=== PATIENT | female | born 1940 | race Two or more races ===

== ENCOUNTER 2018-05-01 15:11 | Emergency (ER) | payer OTHER ==
[2018-05-01 15:19] VITALS: BP 140/66; PULSE 83; TEMP 98.3; BMI 30.2
--- NOTE | 2018-05-01 15:23 | PDOC ---
Rapid Medical Evaluation Chief Complaint: Eye Problem Time Seen by Provider: 05/01/18 15:15 Medical Evaluation: Allergies Allergy/AdvReac Type Severity Reaction Status Date / Time Penicillins Allergy Verified 03/18/18 15:43 05/01/18 15:17 I have performed a brief in-person evaluation of this patient. The patient presents with a chief complaint of: b/l kaylynn-orbital swelling w/ itching and tearing x 2 weeks. 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 Discharge Disposition - Diagnosis Allergic conjunctivitis Qualifiers: Laterality: bilateral Qualified Code(s): H10.13 - Acute atopic conjunctivitis, bilateral - Referrals - Patient Instructions - Post Discharge Activity
--- NOTE | 2018-05-01 16:21 | PDOC ---
History of Present Illness - General Chief Complaint: Eye Problem Stated Complaint: ALLERGIC REACTION Time Seen by Provider: 05/01/18 15:15 - History of Present Illness Initial Comments: 05/01/18 16:18 78-year-old female with multiple comorbidities and glaucoma presents for evaluation of bilateral eye irritation 2 weeks no other associated symptoms Past History - Past Medical History Allergies/Adverse Reactions: Allergies Allergy/AdvReac Type Severity Reaction Status Date / Time Penicillins Allergy Verified 05/01/18 15:19 Home Medications: Ambulatory Orders Alendronate Sodium [Binosto] 70 mg PO HERRERA 03/18/18 Atorvastatin Ca [Lipitor] 20 mg PO DAILY 03/18/18 Clopidogrel Bisulfate [Plavix] 75 mg PO DAILY 03/18/18 Furosemide [Lasix] 20 mg PO DAILY 03/18/18 Levothyroxine Sodium [Synthroid] 0 mcg PO DAILY 03/18/18 Lisinopril 5 mg PO DAILY 03/18/18 COPD: No HTN: Yes Thyroid Disease: Yes Other medical history: legally blind - Suicide/Smoking/Psychosocial Hx Smoking History: Never smoked Review of Systems - Review of Systems HEENTM: Yes: See HPI, Tearing All Other Systems: Reviewed and Negative *Physical Exam - Vital Signs Last Vital Signs Temp Pulse Resp BP Pulse Ox 98.3 F 83 18 140/66 99 05/01/18 15:15 05/01/18 15:15 05/01/18 15:15 05/01/18 15:15 05/01/18 15:15 - Physical Exam Comments: HEAD: NC/AT EYES: Conjuntiva clear erythemic with clear tears MS: Full ROM in all joints without edema NEUROLOGIC: No gross sensory or motor deficits, NVID SKIN: Normal color and temperature no lesions or rashes 05/01/18 16:18 Medical Decision Making - Medical Decision Making 05/01/18 16:19 Patient is on an antibiotic eye ointment erythromycin, and antihistamine eyedrop , as well as drops for her glaucoma that is underlying and has not changed. Her vision has not changed she's 20/200 in both eyes. Legally blind in the left. I will have her follow-up with optomology tomorrow *DC/Admit/Observation/Transfer Diagnosis at time of Disposition: Allergic conjunctivitis Qualifiers: Laterality: bilateral Qualified Code(s): H10.13 - Acute atopic conjunctivitis, bilateral - Discharge Dispostion Disposition: HOME Condition at time of disposition: Stable Decision to Admit order: No - Referrals Referrals: ON STAFF,NOT [Primary Care Provider] - Denisha Orantes MD [Staff Physician] - - Patient Instructions Printed Discharge Instructions: Conjunctivitis, DI for Conjunctivitis Additional Instructions: Is follow-up with ophthalmology tomorrow for further evaluation and treatment options and continue to use the eyedrops that you've already been prescribed. Return to the emergency room should symptoms worsen. - Post Discharge Activity
== END 2018-05-01 16:26 | disposition home or self-care (01) ==
LOC: JERFT 15:11
DX: H10.13 Acute atopic conjunctivitis, bilateral (principal); H54.62 Unqualified visual loss, left eye, normal vision right eye; Z94.7 Corneal transplant status; I10 Essential (primary) hypertension; E03.9 Hypothyroidism, unspecified
CPT/HCPCS: 99281-25

== ENCOUNTER 2018-05-05 01:04 | Emergency (ER) | payer OTHER ==
[2018-05-05 01:51] VITALS: BP 134/71; PULSE 94; TEMP 98.9; BMI 30.7
[2018-05-05] MEDS ORDERED: methylPREDNISolone NA SUCC 125 MG/2 ML VIAL IVPUSH ONE (02:52)
[2018-05-05] MEDS ORDERED: RANITIDINE HCL 150 MG TABLET (FP) PO ONE (02:53)
[2018-05-05] MEDS ORDERED: CIPROFLOXACIN 0.3% EYE DROPS 5 ML BOTTLE OU ONE (02:55)
--- NOTE | 2018-05-05 02:59 | PDOC ---
History of Present Illness - General Chief Complaint: Eye Problem Stated Complaint: EYE SWELLING AND IRRITATION Time Seen by Provider: 05/05/18 02:16 History Source: Patient Exam Limitations: No Limitations - History of Present Illness Initial Comments: 05/05/18 02:56 This is a 78 year old female with a medical history of CAD, HTN, hypothyroid who presents with bilateral eye swelling, green discharge with surrounding face swelling and erythema for the past week. She was recently seen here at [facility] on 05/01 for the same symptoms. She was diagnosed with bilateral conjunctivitis, sent home with erythromycin and optho follow up. Patient with daughter in law today, stating that they were prescribed polymicxin/neomycin/dexamethazone ointment/drops. When patient applied the ointment, her symptoms quickly worsened with increased erythema, eyes swollen shit and itching. She does endorse unusual feeling in throat at that time, that has resolved. Patient denies fever, chills, n, v, chest pain, sob, lip swelling, trouble swallowing, GI or complaints. 05/05/18 03:04 Timing/Duration: 1 week, getting worse Severity: moderate Modifying Factors: improves with: medication (worse with new prescribed medication) Past History - Past Medical History Allergies/Adverse Reactions: Allergies Allergy/AdvReac Type Severity Reaction Status Date / Time Penicillins Allergy Verified 05/01/18 15:19 Home Medications: Ambulatory Orders Alendronate Sodium [Binosto] 70 mg PO HERRERA 03/18/18 Atorvastatin Ca [Lipitor] 20 mg PO DAILY 03/18/18 Clopidogrel Bisulfate [Plavix] 75 mg PO DAILY 03/18/18 Furosemide [Lasix] 20 mg PO DAILY 03/18/18 Levothyroxine Sodium [Synthroid] 0 mcg PO DAILY 03/18/18 Lisinopril 5 mg PO DAILY 03/18/18 Ciprofloxacin 0.3% Eye Drops [Ciloxan 0.3% Eye Drops --] 2 drop OU Q4HWA 7 Days #2 bottle 05/05/18 Diphenhydramine HCl [Benadryl -] 25 mg PO Q8H PRN 3 Days #9 capsule 05/05/18 Methylprednisolone [Medrol Dose [place]] 4 mg PO ASDIR #21 tablet 05/05/18 Neomy Sulf/Bacitra/Polymyxin B [Neosporin Eye Ointment -] 1 applic OD HS Neomycin/Polymyx/Hc Ophth Susp [Cortisporin *Ophthalmic Suspension* -] QID 05/05 Ranitidine [Zantac -] 150 mg PO DAILY 7 Days #7 tablet 05/05/18 COPD: No HTN: Yes Thyroid Disease: Yes - Suicide/Smoking/Psychosocial Hx Smoking History: Never smoked Information on smoking cessation initiated: No Hx Alcohol Use: No Drug/Substance Use Hx: No Review of Systems - Review of Systems Able to Perform ROS?: Yes Is the patient limited Samoan proficient: Yes Constitutional: Yes: See HPI HEENTM: Yes: Blurred Vision, Other (eyes swoleed shut). No: Throat Pain, Throat Swelling, Mouth Pain, Difficulty Swallowing Respiratory: No: Cough, Shortness of Breath, Stridor Cardiac (ROS): Yes: Other (chronic bilateral leg swelling). No: Chest Pain ABD/GI: No: Abdominal Distended, Nausea, Vomiting : No: Hematuria, Incontinence, Pain, Urgency Musculoskeletal: No: Back Pain, Joint Swelling, Muscle Pain Neurological: No: Headache, Numbness, Tremors, Weakness, Unsteady Gait *Physical Exam - Vital Signs Last Vital Signs Temp Pulse Resp BP Pulse Ox 98.9 F 94 H 20 134/71 96 05/05/18 01:12 05/05/18 01:12 05/05/18 01:12 05/05/18 01:12 05/05/18 01:12 - Physical Exam General Appearance: Yes: Appropriately Dressed HEENT: positive: Normal ENT Inspection, Normal Voice, Pharynx Normal, Other ( bilateral eye lid swelling/left swollen shut/ with surrounding erythema, warmth , clear secretions) Neck: negative: Stridor Respiratory/Chest: positive: Lungs Clear, Normal Breath Sounds Cardiovascular: positive: Regular Rhythm, Regular Rate, S1, S2 Vascular Pulses: Carotid (R): 2+, Carotid (L): 2+ Gastrointestinal/Abdominal: positive: Normal Bowel Sounds, Soft Extremity: positive: Normal Capillary Refill, Normal Range of Motion, Swelling ( bilatereal leg swelling; 1+) Neurologic: positive: body repairer II-XII NML intact, Fully Oriented, Alert, Normal Mood/ Affect ED Treatment Course - LABORATORY CBC & Chemistry Diagram: 05/05/18 03:31 05/05/18 03:31 Medical Decision Making - Medical Decision Making 05/05/18 03:17 This is a 78 year old female with bilateral conjunctivitis, now with allergic reaction to medication polymixin/neomycin ointment that were prescribed to her. #allergic reaction to medication as above #bilateral conjunctivitis -stat IV solumedrol -IV benedryl -antihistimine ranitidine -ciprofloxacin eye drops *DC/Admit/Observation/Transfer Diagnosis at time of Disposition: Conjunctivitis Qualifiers: Conjunctivitis type: acute Acute conjunctivitis type: bacterial Laterality: bilateral Qualified Code(s): H10.33 - Unspecified acute conjunctivitis, bilateral Allergic reaction caused by a drug Qualifiers: Encounter type: initial encounter Qualified Code(s): T78.40XA - Allergy, unspecified, initial encounter - Discharge Dispostion Disposition: HOME Condition at time of disposition: Fair Decision to Admit order: No - Prescriptions Prescriptions: Ciprofloxacin 0.3% Eye Drops [Ciloxan 0.3% Eye Drops --] 2 drop OU Q4HWA 7 Days #2 bottle Diphenhydramine HCl [Benadryl -] 25 mg PO Q8H PRN 3 Days #9 capsule PRN Reason: For Itching Methylprednisolone [Medrol Dose [place]] 4 mg PO ASDIR #21 tablet Ranitidine [Zantac -] 150 mg PO DAILY 7 Days #7 tablet - Referrals Referrals: ON STAFF,NOT [Primary Care Provider] - - Patient Instructions Printed Discharge Instructions: Conjunctivitis (Alternative Therapy), DI for Eye Allergic Reaction Additional Instructions: Ms. Quispe, you have been diagnosed with conjunctivitis, which is an eye infection. You also have an allergic reaction you the eye medication, polymyxin/ neomycin ointment/drops. Please be advised in the future not to take this medication again. Please follow up with your primary and your opthalmologist. If you experience any worsening of symptoms, worsening swelling or irritation, please return to the emergency room. - Post Discharge Activity
--- NOTE | 2018-05-05 03:05 | PDOC ---
Attending Attestation - Resident Resident Name: Laura Hughes - ED Attending Attestation I have performed the following: I have examined & evaluated the patient, The case was reviewed & discussed with the resident, I agree w/resident's findings & plan, Exceptions are as noted - HPI HPI: 05/06/18 22:05 Ms Quispe is a 78 yo F who presents to the ER for evaluation of worsening eye irritation She has a h/o CAD, HTN, hypothyroid, glaucoma s/p ophthalmological surgery Pt s/p recent visit to the ER for eye erythema She had already been given Erythromycin ointment which she was using She was asked to follow up with her home organizer Based on the medications this patient has with her, she was given polymyxin cream After returning to the Opthomologist's office she was given polymyxin neomycin eyedrops This significantly exacerbated her eye irritation. No fever or chills. Pt legally blind 05/06/18 22:07 - Physicial Exam PE: 05/06/18 22:15 GENERAL: The patient is in no acute distress. HEAD: Normal EYES: Left eye: cloudy cornea, right eye conjunctival injection, skin beneath the eyes erythematous, swollen (+) mucous noted in the eye Skin abraded ENT: No lip swelling LUNGS: Breath sounds equal, clear HEART:Regular rate and rhythm, normal S1 and S2 without murmur, rub or gallop. ABDOMEN: Soft, nontender NEUROLOGICAL: Cranial nerves II through XII grossly intact. Normal speech. No focal neurological deficits. SKIN: as above 05/06/18 23:07 - Medical Decision Making 05/06/18 23:12 Will discharge on steroid taper, discontinue antibiotic (as she may have had an allergic reaction to the antibiotics she was ) Pt daughter in law asked to take daily photos of her eyes to monitor for progression/improvement Pt daughter in law asked to bring her back to the ER for re assessment in 2 days OR follow up with the Composite Layup Worker Return to the ER immediately for any other concern or complaints
[2018-05-05] MEDS ORDERED: CIPROFLOXACIN HCL 0.3% OPHTH 2.5ML BOTTLE OU ONE (03:15)
[2018-05-05] MEDS ORDERED: RANITIDINE HCL 150 MG TABLET (FP) ONE (03:45)
[2018-05-05] MEDS ORDERED: CIPROFLOXACIN HCL 0.3% OPHTH 2.5ML BOTTLE ONE (03:45)
[2018-05-05 03:46] LABS: BASO % 0.9 % (0-2.0); EOS % 4.7 % (0-4.5); HEMATOCRIT 40.9 % (32.4-45.2); HEMOGLOBIN 13.8 GM/dL (10.7-15.3); LYMPH % 29.8 % (8-40); MCH 30.9 pg (25.7-33.7); MCHC 33.9 g/dl (32.0-36.0); MEAN CELL VOLUME 91.2 fl (80-96); MEAN PLT VOLUME 6.9 fl (7.5-11.1); MONO % 6.2 % (3.8-10.2); NEUT % 58.4 % (42.8-82.8); PLATELET COUNT 353 K/MM3 (134-434); RBC 4.48 M/mm3 (3.60-5.2); RDW 13.6 % (11.6-15.6); WHITE BLOOD COUNT 9.4 K/mm3 (4.0-10.0)
[2018-05-05] MEDS ORDERED: methylPREDNISolone NA SUCC 125 MG/2 ML VIAL ONE (03:46)
[2018-05-05 04:14] LABS: ANION GAP 11 MMOL/L (8-16); BLOOD UREA NITROGEN 20 mg/dL (7-18); CALCIUM 9.6 mg/dL (8.5-10.1); CHLORIDE 109 mmol/L (98-107); CO2 27 mmol/L (21-32); CREATININE 0.5 mg/dL (0.55-1.3); GLUCOSE,RANDOM 123 mg/dL (74-106); POTASSIUM 4.3 mmol/L (3.5-5.1); SODIUM 146 mmol/L (136-145)
== END 2018-05-05 05:45 | disposition home or self-care (01) ==
LOC: JER 01:04
PROC: 3E033GC Introduction of Other Therapeutic Substance into Peripheral Vein, Percutaneous Approach (ICD-10-PCS; principal; 2018-05-05)
DX: H10.33 Unspecified acute conjunctivitis, bilateral (principal); I25.10 Atherosclerotic heart disease of native coronary artery without angina pectoris; I10 Essential (primary) hypertension; E03.9 Hypothyroidism, unspecified
CPT/HCPCS: 36415; 80048; 85025; 96374; 96375; 99281-25

== ENCOUNTER 2018-05-11 18:33 | Inpatient (IN) | payer OTHER ==
--- NOTE | 2018-05-11 19:39 | PDOC ---
Attending Attestation - HPI HPI: 05/11/18 20:26 The patient is a 78 year old female with a significant past medical history of CAD, HTN, hypothyroid, glaucoma s/p ophthalmological surgery who presents to the ED with 3 days of left hip pain. Patient states she had a sudden onset of left hip pain while she was standing over the sink while getting her hair colored 3 days ago. Patient states the left pain is non radiating and constant ever since. She states the pain is worsened when walking and with movement. Patient states she took ibuprofen 2 days ago and yesterday with relief of pain but did not take anything for pain today. Denies back pain. Denies any other symptoms. - Physicial Exam PE: 05/11/18 20:26 Constitutional: Awake, alert, oriented. No acute distress. Head: Normocephalic. Atraumatic Eyes: PERRL. EOMI. Conjunctivae are not pale. ENT: Mucous membranes are moist and intact. Posterior pharynx without exudates or erythema. Uvula midline. Neck: Supple. Full ROM. No lymphadenopathy. Cardiovascular: Regular rate. Regular rhythm. S1, S2 regular. Distal pulses are 2+ and symmetric. Pulmonary/Chest: No evidence of respiratory distress. Clear to auscultation bilaterally No wheezing, rales or rhonchi. Abdominal: Soft and non-distended. There is no tenderness. No rebound, guarding or rigidity. No organomegaly. No palpable masses. Good bowel sounds. Back: No CVA tenderness. No midline tenderness. Musculoskeletal: + Left hip pain. No weakness of the legs, no deformity, no weakness, no paresthesia. No edema. No cyanosis. No clubbing. Full range of motion in all extremities. Nocalf tenderness. Radial/pedal pulses are intact and 2+ bilaterally Skin: Skin is warm and dry. No petechiae. No purpura. Neurological: Alert and oriented to person, place, and time. Cranial nerves II -XII are grossly intact. Normal speech. Strength is grossly symmetric. No sensory deficits. Psychiatric: Good eye contact. Normal interaction, affect and behavior. <Namrata Mathis - Last Filed: 05/11/18 20:26> - Resident Resident Name: Ortega Chen - ED Attending Attestation I have performed the following: I have examined & evaluated the patient, The case was reviewed & discussed with the resident, I agree w/resident's findings & plan, Exceptions are as noted - Medical Decision Making 05/11/18 19:39 I, Dr. Mary Anne Silvestre DO, attest that this document has been prepared under my direction and personally reviewed by me in its entirety. I further attest, that it accurately reflects all work, treatment, procedures and medical decision -making performed by me. 05/11/18 21:07 a/p: 78yo female with L low back pain and L hip pain x 3 days -no midline ttp, no loss of control of bowel or bladder, no weakness or paresthesias, no signs/symptoms of caude equina, no red flags -has been ambulatory -motrin has helped the pain -was bending over the sink and then stood up when the pain started -feels a tightness in her L hip -no weakness in legs, no numbness or tingling in legs -no abd pain. No n/v/d -no urinary complaints -will medicate for pain, will obtain xrays of lumbar spine and pelvis/hip 05/11/18 22:26 pt with L fem neck fx case discussed with Dr. Feng who will eval the patient, NPO after midnight <Mary Anne Silvestre - Last Filed: 05/11/18 23:48> Heart Score/ECG Review - ECG Intrepretation Comment:: 05/11/18 23:47 sinus at 77, nl axis, nl interval, t wave flattening diffusely, no acute nancie/std <Mary Anne Silvestre - Last Filed: 05/11/18 23:48> Attestations - Attestations 05/11/18 20:26 Documentation prepared by Namrata Mathis, acting as medical case manager for Mary Anne Silvestre DO <Namrata Mathis - Last Filed: 05/11/18 20:26>
--- NOTE | 2018-05-11 19:43 | PDOC ---
History of Present Illness <Mary Anne Silvestre - Last Filed: 05/11/18 22:27> - General History Source: Patient Exam Limitations: No Limitations - History of Present Illness Initial Comments: 05/11/18 19:24 78 yo female presents with [id number] pmh of HTN, CAD, hypothyroid, and glaucoma presents to the ED with sudden onset left hip pain. States the pain began 3 days ago after bending over the sink for a long period of time while getting her hair colored but denies fall or injury. States that the pain has been constant since the event, located focally around the left greater trochanter, non radiating and made worse with walking or bending the hip. Took 800mg Ibuprofen 1st day and 1600mg the second day with some pain relief but did not take anything for pain today. Denies sensory changes or weakness in the left leg, incontinence, saddle anesthesia, abdominal pain, changes in bowel or bladder habits or N/V/F/C <Ortega Chen - Last Filed: 05/11/18 22:43> - General Chief Complaint: Pain, Acute Stated Complaint: PAIN, ACUTE Time Seen by Provider: 05/11/18 19:21 Past History <Mary Anne Silvestre - Last Filed: 05/11/18 22:27> - Past Medical History Cardiac Disorders: Yes COPD: No HTN: Yes Thyroid Disease: Yes - Immunization History Immunization Up to Date: Yes - Suicide/Smoking/Psychosocial Hx Smoking History: Never smoked Hx Alcohol Use: No Drug/Substance Use Hx: No Substance Use Type: None <Ortega Chen - Last Filed: 05/11/18 22:43> - Past Medical History Allergies/Adverse Reactions: Allergies Allergy/AdvReac Type Severity Reaction Status Date / Time neomycin Allergy Verified 05/11/18 19:47 Penicillins Allergy Verified 05/11/18 18:51 Home Medications: Ambulatory Orders Alendronate Sodium [Binosto] 70 mg PO HERRERA 03/18/18 Atorvastatin Ca [Lipitor] 20 mg PO DAILY 03/18/18 Clopidogrel Bisulfate [Plavix] 75 mg PO DAILY 03/18/18 Furosemide [Lasix] 20 mg PO DAILY 03/18/18 Levothyroxine Sodium [Synthroid] 0 mcg PO DAILY 03/18/18 Lisinopril 5 mg PO DAILY 03/18/18 Ciprofloxacin 0.3% Eye Drops [Ciloxan 0.3% Eye Drops --] 2 drop OU Q4HWA 7 Days #2 bottle 05/05/18 Diphenhydramine HCl [Benadryl -] 25 mg PO Q8H PRN 3 Days #9 capsule 05/05/18 Methylprednisolone [Medrol Dose [place]] 4 mg PO ASDIR #21 tablet 05/05/18 Ranitidine [Zantac -] 150 mg PO DAILY 7 Days #7 tablet 05/05/18 Review of Systems - Review of Systems Constitutional: No: Chills, Fever Respiratory: No: Shortness of Breath Cardiac (ROS): No: Chest Pain ABD/GI: No: Nausea, Vomiting Musculoskeletal: Yes: Joint Pain (left hip pain). No: Back Pain, Muscle Weakness Integumentary: No: Rash Neurological: No: Numbness, Paresthesia, Weakness <Ortega Chen - Last Filed: 05/11/18 22:43> *Physical Exam - Vital Signs Last Vital Signs Temp Pulse Resp BP Pulse Ox 98.5 F 86 16 125/68 97 05/11/18 18:52 05/11/18 18:52 05/11/18 18:52 05/11/18 18:52 05/11/18 18:52 <Mary Anne Silvestre - Last Filed: 05/11/18 22:27> - Vital Signs Last Vital Signs Temp Pulse Resp BP Pulse Ox 98.5 F 86 16 125/68 97 05/11/18 18:52 05/11/18 18:52 05/11/18 18:52 05/11/18 18:52 05/11/18 18:52 - Physical Exam General Appearance: Yes: Nourished, Appropriately Dressed, Apparent Distress HEENT: positive: EOMI Respiratory/Chest: positive: Lungs Clear, Normal Breath Sounds Cardiovascular: positive: Regular Rhythm, Regular Rate, S1, S2. negative: Edema , JVD, Murmur Vascular Pulses: Dorsalis-Pedis (R): 3+, Doralis-Pedis (L): 3+ Gastrointestinal/Abdominal: positive: Flat, Soft. negative: Pulsatile Mass, Distended, Guarding, Rebound, Tenderness Musculoskeletal: positive: Decreased Range of Motion (in hip flexion and extension), Other (pain in left with palpation. No major deformities noted. ) Extremity: positive: Normal Capillary Refill. negative: Swelling, Calf Tenderness Integumentary: positive: Normal Color, Dry, Warm Neurologic: positive: Fully Oriented, Alert, Normal Mood/Affect, Normal Response , Motor Strength 5/5. negative: Numbness, Sensory Deficit <Ortega Chen - Last Filed: 05/11/18 22:43> ED Treatment Course - ADDITIONAL ORDERS Additional order review: Laboratory Results 05/11/18 19:56 Urine Color Straw Urine Appearance Clear Urine pH 7.0 Ur Specific Lotus 1.008 L Urine Protein Negative Urine Glucose (UA) Negative Urine Ketones Negative Urine Blood Negative Urine Nitrite Negative Urine Bilirubin Negative Urine Urobilinogen Negative Ur Leukocyte Esterase Negative - Medications Given in the ED: ED Medications Discontinued Medications Generic Name Dose Route Start Last Admin Trade Name Moisés PRN Reason Stop Dose Admin Acetaminophen 1,000 mg 05/11/18 19:45 05/11/18 20:09 Tylenol - PO 05/11/18 19:46 1,000 mg ONCE ONE Administration Diazepam 2 mg 05/11/18 19:56 05/11/18 20:11 Valium - PO 05/11/18 19:57 2 mg ONCE ONE Administration <Mary Anne Silvestre - Last Filed: 05/11/18 22:27> Medical Decision Making - Medical Decision Making 05/11/18 22:39 78 yo female <Ortega Chen - Last Filed: 05/11/18 22:43> *DC/Admit/Observation/Transfer - Discharge Dispostion Decision to Admit order: Yes <Mary Anne Silvestre - Last Filed: 05/11/18 22:27> - Discharge Dispostion Decision to Admit order: Yes <Ortega Chen - Last Filed: 05/11/18 22:43> Diagnosis at time of Disposition: Femoral neck fracture - Discharge Dispostion Condition at time of disposition: Stable - Referrals Referrals: ON STAFF,NOT [Primary Care Provider] - - Patient Instructions - Post Discharge Activity
[2018-05-11] MEDS ORDERED: ACETAMINOPHEN 500 MG TABLET (FP) PO ONE (19:45)
[2018-05-11] MEDS ORDERED: diazePAM 2 MG TABLET PO ONE (19:56)
[2018-05-11] MEDS ORDERED: ACETAMINOPHEN 325 MG TABLET (FP) ONE (19:57)
[2018-05-11] MEDS ORDERED: diazePAM 2 MG TABLET ONE (20:01)
[2018-05-11 20:27] LABS: URINE APPEARANCE CLEAR; URINE BILIRUBIN NEGATIVE (<2.0 mg/dL); URINE COLOR STRAW; URINE GLUCOSE (UA) NEGATIVE (NEGATIVE); URINE KETONE NEGATIVE (NEGATIVE); URINE LEUK ESTERASE NEGATIVE (NEGATIVE); URINE NITRITE NEGATIVE (NEGATIVE); URINE PROTEIN NEGATIVE (NEGATIVE); URINE UROBILINOGEN NEGATIVE mg/dL (0.2-1.0)
[2018-05-11 22:53] LABS: BASO % 0.3 % (0-2.0); EOS % 0.6 % (0-4.5); HEMATOCRIT 44.2 % (32.4-45.2); HEMOGLOBIN 14.3 GM/dL (10.7-15.3); LYMPH % 32.6 % (8-40); MCH 29.9 pg (25.7-33.7); MCHC 32.4 g/dl (32.0-36.0); MEAN CELL VOLUME 92.2 fl (80-96); MEAN PLT VOLUME 6.8 fl (7.5-11.1); NEUT % 59.5 % (42.8-82.8); PLATELET COUNT 406 K/MM3 (134-434); RDW 13.4 % (11.6-15.6); WHITE BLOOD COUNT 10.9 K/mm3 (4.0-10.0)
[2018-05-11 23:07] LABS: INR 0.87 (0.83-1.09); PROTHROMBIN TIME (PATIENT) 10.2 SEC (9.7-13.0)
[2018-05-11 23:10] LABS: ACTIVATED PTT 19.8 SECONDS (25.2-36.5); ALBUMIN 3.4 g/dl (3.4-5.0); ALK PHOS 85 U/L (45-117); ANION GAP 7 MMOL/L (8-16); BILIRUBIN,TOTAL 0.3 mg/dL (0.2-1); BLOOD UREA NITROGEN 19 mg/dL (7-18); CALCIUM 9.5 mg/dL (8.5-10.1); CHLORIDE 104 mmol/L (98-107); CO2 30 mmol/L (21-32); CREATININE 0.6 mg/dL (0.55-1.3); GLUCOSE,RANDOM 113 mg/dL (74-106); POTASSIUM 4.4 mmol/L (3.5-5.1); SGOT/AST 19 U/L (15-37); SGPT/ALT 44 U/L (13-61); SODIUM 140 mmol/L (136-145); TOT PROT 7.2 g/dl (6.4-8.2)
[2018-05-11] MEDS ORDERED: ONDANSETRON 4 MG/2 ML VIAL IVPUSH ONE (23:17)
[2018-05-11] MEDS ORDERED: morphine CARPU-JECT 2 MG/1 ML DISP.SYRIN IVPUSH ONE (23:17)
--- NOTE | 2018-05-11 23:26 | CONSULT ---
Consult Consult Specialty:: Orthopedic Surgery Referred by:: Dr. Silvestre - ER Reason for Consultation:: Left Hip Fracture - History of Present Illness Chief Complaint: Left hip pain History of Present Illness: This is a 78 year old italian speaking community ambulator female complaining of significant Left hip pain for the past 3-4 days. Her daughter in law is at bedside able to translate. Her pain is in her left groin, as well as the lateral and posterior aspects of her left hip. Her daughter in law states she has had trouble walking for the past week, and 3 days ago, she was standing getting her hair done when suddenly she stood up and her left sided pain increased significantly. She had difficultly walking or standing since then, and was brought in to the ER today. Her pain worsens with standing or moving her left hip, and is relieved with rest. She denies any specific trauma, or any numbness or tingling in bilateral extremities. She also denies any bowel/ bladder incontinence or saddle parasthesias. - History Source History Provided By: Patient, Family Member Limitations to Obtaining History: No Limitations - Past Medical History Cardio/Vascular: Yes: CAD, HTN Musculoskeletal: Yes: Osteoarthritis Endocrine: Yes: Hypothyroidism Additional Medical History: Glaucoma s/p optho surgery - Alcohol/Substance Use Hx Alcohol Use: No - Smoking History Smoking history: Never smoked - Social History Usual Living Arrangement: Other (family) ADL: Family Assistance Home Medications - Allergies Allergies/Adverse Reactions: Allergies Allergy/AdvReac Type Severity Reaction Status Date / Time neomycin Allergy Verified 05/11/18 19:47 Penicillins Allergy Verified 05/11/18 18:51 - Home Medications Home Medications: Ambulatory Orders Alendronate Sodium [Binosto] 70 mg PO HERRERA 03/18/18 Atorvastatin Ca [Lipitor] 20 mg PO DAILY 03/18/18 Clopidogrel Bisulfate [Plavix] 75 mg PO DAILY 03/18/18 Furosemide [Lasix] 20 mg PO DAILY 03/18/18 Levothyroxine Sodium [Synthroid] 0 mcg PO DAILY 03/18/18 Lisinopril 5 mg PO DAILY 03/18/18 Ciprofloxacin 0.3% Eye Drops [Ciloxan 0.3% Eye Drops --] 2 drop OU Q4HWA 7 Days #2 bottle 05/05/18 Diphenhydramine HCl [Benadryl -] 25 mg PO Q8H PRN 3 Days #9 capsule 05/05/18 Methylprednisolone [Medrol Dose [place]] 4 mg PO ASDIR #21 tablet 05/05/18 Ranitidine [Zantac -] 150 mg PO DAILY 7 Days #7 tablet 05/05/18 Review of Systems - Review of Systems Constitutional: reports: No Symptoms HENT: reports: No Symptoms Neck: reports: No Symptoms Cardiovascular: reports: No Symptoms Respiratory: reports: No Symptoms Gastrointestinal: reports: No Symptoms Genitourinary: reports: No Symptoms Breasts: reports: No Symptoms Reported Musculoskeletal: reports: Extremity Pain, Joint Pain (Left Hip pain) Integumentary: reports: No Symptoms Neurological: reports: No Symptoms Endocrine: reports: No Symptoms Hematology/Lymphatic: reports: No Symptoms Pain Intensity: 8 Physical Exam Vital Signs: Vital Signs Temperature 98.5 F 05/11/18 18:52 Pulse Rate 86 05/11/18 18:52 Respiratory Rate 16 05/11/18 18:52 Blood Pressure 125/68 05/11/18 18:52 O2 Sat by Pulse Oximetry (%) 97 05/11/18 18:52 Constitutional: Yes: Well Nourished, Mild Distress Musculoskeletal: Yes: Other (PE: Left Lower Extremity: + Log Roll test. Unable to Straight Leg Raise. No Calf Pain. 2+ DP / CR Brisk. + EHL/FHL/GC/TA 5/ 5 muscle strength. L3-S1 SILT. All compartments of the leg soft and compressible ; Right Lower Extremity: PE: Negative Log Roll test. Able to Straight Leg Raise without pain. FROM of the Right hip without pain. No Calf Pain. 2+ DP / CR Brisk. + EHL/FHL/GC/TA 5/5 muscle strength. L3-S1 SILT. All compartments of the leg soft and compressible. Spine Exam: No stepoffs or deformities, cervical, thoracic, or lumbar spine. No midline tenderness. Paraspinals nontender. Bilateral Upper Extremities: Neurovascularly intact. FROM all joints without pain. No TTP all joints without pain. 5/5 muscle strength Deltoids, Triceps, Trapezius, Biceps, and flexors/extensors of the hand and wrist.) Edema: LLE: 2+, RLE: 2+ Labs: CBC, BMP 05/11/18 22:30 05/11/18 22:30 Imaging - Results X-ray: Report Reviewed, Image Reviewed (Radiographs of the Left hip and Pelvis were personally reviewed by me demonstrate a left femoral neck fracture that is valgus impacted. There are also signs of arthritis characterized by bone sclerosis, joint space narrowing, and bone spurring. No bony lesions, or dislocations or subluxations seen. Radiographs of the L-spine were reviewed by me today demonstrate no fractures, dislocations, subluxations, or any bony lesions.) Assessment/Plan Ms. Quispe is a 78 year old female presenting with a left sided hip fracture. We have reviewed the imaging and clinical findings in detail, as well as their potential implications. This is an operative fracture. I discussed this plan with the patient and her [id number] at bedside. We discussed the risks and benefits of surgery at length including but not limited to Blood clots, Infection, Blood loss, Implant Failure which would require an additional surgery, and in rare cases demise of the patient. We will take every effort to avoid these complications including but not limited to dvt ppx, antibiotics, and obtaining medical clearance before proceeding with the surgical case. The patient and her [id number] expressed understanding of the plan and agreed to proceed with the surgical case. Plan: Admit to medical team 1. Pain Control 2. DVT Prophylaxis - give one dose of heparin tonight, and hold past midnight. 3. NPO Past midnight 4. Needs preop labs for surgery (CBC, BMP, PT/PTT/INR, Type and screen, 2 Units PRBCs on hold, Urinalysis, Fluids, EKG, CXR etc.) 5. Needs preop medical clearance; Once medically cleared, plan to take to the OR on 05/12/18. 7. Non-weight bearing left lower extremity 8. Will follow All questions were answered. Thank you for involving our team in the care of this patient. Kevon Feng, DO Orthopedic Surgery Please call us at [phone] with questions
[2018-05-11] MEDS ORDERED: ONDANSETRON 4 MG/2 ML VIAL ONE (23:29)
[2018-05-11] MEDS ORDERED: MORPHINE SULFATE 2 MG/ML VIAL ONE (23:29)
[2018-05-11] MEDS ORDERED: HEPARIN NA (PORCINE) 5,000 UNITS/ML 1ML VIAL ONE ×3 (23:57)
[2018-05-12] MEDS ORDERED: diphenhydrAMINE HCL 25 MG CAPSULE (FP) PO PRN (02:56)
--- NOTE | 2018-05-12 03:45 | PN ---
Teaching Attending Note Name of Resident: Tashia Clifton ATTENDING PHYSICIAN STATEMENT I saw and evaluated the patient. I reviewed the resident's note and discussed the case with the resident. I agree with the resident's findings and plan as documented. SUBJECTIVE: Patient is a 78 y/o HF with a PMH significant for CAD (denies PCI, recent negative stress test in november per the patient), HTN, hypothyroid, glaucoma s/p procedure. She presents to the ER with a CC of hip pain. She has been having L -sided hip pain for 3 days which began when bending over her sink when fixing her hair. Never had a pain like it before. Constant in nature, worse with activity, somewhat better with rest and analgesics but never completely resolved. Hasn't seen any other providers for this. Came to the ER today due to the progressive, severe pain. No neuro sx, no recent trauma. Found to have a L-femoral neck fracture. Orthopedics saw her in the ER and wish to operate and have requested preoperative assessment which will be provided preliminarily by internal medicine service. 10 sys ROS done and negative aside from HPI FH asked and noncontributory Denies EtOH, drug abuse PMH and PSH reviewed and are as per chart OBJECTIVE: VS reviewed, labs reviewed, imaging reviewed NAD, AAO, resting comfortably in bed RRR s1/2 no mgr L-hip pain to palpation worse posterior/lateral with reduced ROM 2/2 pain, externally rotated and slightly short L-leg. Moves all 3 other limbs without difficulty. Normal muscle tone. CN2-12 grossly intact without any focal neuro abnormalities NT ND +BS Behavior normal with normal affect ASSESSMENT AND PLAN: Mrs. Flower is a 78 y/o HF presenting to the ER found to have a hip fracture; she will be taken to the OR with Dr. Feng on 05/12/2018 for repair of her hip fx. She is hemodynamically stable, afebrile, and doesn't appear to have any acute issues other than the fracture. PREOPERATIVE ASSESSMENT Patient is a 78 y/o CF who is ASA Class 2 in terms of her overall disease state. Her Cr is <1.5, she is totally independent at home, and the procedure type is orthopedic (hip) which is NOT a high risk surgery. She does have a history of ischemic heart disease but is having no symptoms at this present time and requires no further cardiac workup. No documented history of CHF and no s/s CHF on physical exam or by history. She is not on preoperative insulin. This would place her risks as: -RCRI Class II (1 point) placing her at a 0.9% risk of major cardiac event with this procedure -Brannon risk assessment yields 0.2% estimated risk probability for perioperative myocardial infarction or cardiac arrest Thus, it is the medicine team's opinion that the benefits of this procedure outweigh the risks and that the patient should proceed with surgery should they consent and the specialty teams wish to proceed. She should resume heparin SQ for DVT prophylaxis post procedure when OK with orthopedic sgy. She does not have any stents recently, reports a normal stress test in November. Should hold antiplatelet medications until cleared by orthopedic sgy. 1) L-femoral neck fracture -Orthopedic sgy consulted. Plan on operating tomorrow. Please see our preoperative assessment above. Plan to hold all meds that increase risk of bleed (ASA, NSAIDs, Plavix, etc); resume heparin post procedure per ortho. -Pain control; bowel regimine to be added post op -Monitor pain level, neurovascular checks. -PT/OT. May require rehab post operatively. 2) CAD -Hold antiplatelets; resume when OK with ortho -Continue statin; obtain old records if needed from PCP to review stress test, etc. -Stable and asx, nonacute 3) HTN -Keep SBP <160; hold furosemide preprocedure -Reconcile meds; cross check with PCP 4) Glaucoma -Nonacute, continue home management 5) Hypothyroid -Nonacute, continue home management Full Code
[2018-05-12 03:51] VITALS: BMI 30.2
--- NOTE | 2018-05-12 04:51 | HP ---
CHIEF COMPLAINT: Left hip pain PCP: Gustavo HISTORY OF PRESENT ILLNESS: Patient is a 78 y/o female with a history of HTN, hypothyroid, glaucoma, and HLD who presents with left hip pain. Patient has no traumatic event, but just has been feeling worsening left hip pain over the least week. She got to a point where she couldn't tolerate the pain anymore so she decided to come to the ED. She reports she has not been taking any medication on her own to help for the pain. She reports a fracture in her left hip but from " when she was much younger." Patient does not endorse history of osteopenia but does not know why she takes the alendronate. Patient does not endorse a cardiac history to her knowledge. She had a normal stress test done at [facility] in November. She does not follow with a manager fashion. patient is typically able to ambulate on her own. Patient was found to have a left femoral fracture in the ED on xray. Patient denies any chest pain, loss of sensation in her feet. Shortness of breath, nausea or vomiting. She notes she only has hip pain. ER course was notable for: (1) (2) (3) Recent Travel: PAST MEDICAL HISTORY: HTN, hypothyroid, glaucoma, and HLD PAST SURGICAL HISTORY: hernia, hysterectomy, cholecystectomy Social History: Smoking: denies Alcohol: denies Drugs: denies Family History: Allergies neomycin Allergy (Verified 05/11/18 19:47) Penicillins Allergy (Verified 05/11/18 18:51) HOME MEDICATIONS: Home Medications Medication Instructions Recorded Alendronate Sodium [Binosto] 70 mg PO HERRERA 03/18/18 Atorvastatin Ca [Lipitor] 20 mg PO DAILY 03/18/18 Clopidogrel Bisulfate [Plavix] 75 mg PO DAILY 03/18/18 Furosemide [Lasix] 20 mg PO DAILY 03/18/18 Levothyroxine Sodium [Synthroid] 0 mcg PO DAILY 03/18/18 Lisinopril 5 mg PO DAILY 03/18/18 Ciprofloxacin 0.3% Eye Drops 2 drop OU Q4HWA 7 Days #2 bottle 05/05/18 [Ciloxan 0.3% Eye Drops --] Diphenhydramine HCl [Benadryl -] 25 mg PO Q8H PRN 3 Days #9 capsule 05/05/18 Methylprednisolone [Medrol Dose 4 mg PO ASDIR #21 tablet 05/05/18 [place]] Ranitidine [Zantac -] 150 mg PO DAILY 7 Days #7 tablet 05/05/18 REVIEW OF SYSTEMS CONSTITUTIONAL: Absent: fever, chills, diaphoresis, generalized weakness, malaise, loss of appetite, weight change HEENT: Absent: rhinorrhea, nasal congestion, throat pain, throat swelling, difficulty swallowing, mouth swelling, ear pain, eye pain, visual changes CARDIOVASCULAR: Absent: chest pain, syncope, palpitations, irregular heart rate, lightheadedness , peripheral edema RESPIRATORY: Absent: cough, shortness of breath, dyspnea with exertion, orthopnea, wheezing, stridor, hemoptysis GASTROINTESTINAL: Absent: abdominal pain, abdominal distension, nausea, vomiting, diarrhea, constipation, melena, hematochezia GENITOURINARY: Absent: dysuria, frequency, urgency, hesitancy, hematuria, flank pain, genital pain MUSCULOSKELETAL: left hip pain Absent: myalgia, arthralgia, joint swelling, back pain, neck pain SKIN: Absent: rash, itching, pallor HEMATOLOGIC/IMMUNOLOGIC: Absent: easy bleeding, easy bruising, lymphadenopathy, frequent infections ENDOCRINE: Absent: unexplained weight gain, unexplained weight loss, heat intolerance, cold intolerance NEUROLOGIC: Absent: headache, focal weakness or paresthesias, dizziness, unsteady gait, seizure, mental status changes, bladder or bowel incontinence PSYCHIATRIC: Absent: anxiety, depression, suicidal or homicidal ideation, hallucinations. PHYSICAL EXAMINATION Vital Signs - 24 hr 05/11/18 05/12/18 05/12/18 18:52 01:52 03:39 Temperature 98.5 F 99.3 F 98.2 F Pulse Rate 86 80 Pulse Rate [ 86 Left Brachial] Respiratory 16 16 18 Rate Blood Pressure 125/68 129/74 Blood Pressure 115/55 L [Right Arm] O2 Sat by Pulse 97 96 94 L Oximetry (%) GENERAL: Awake, alert, and fully oriented, in no acute distress. HEAD: Normal with no signs of trauma. EYES: left eye clouded EARS, NOSE, THROAT: Moist mucous membranes. NECK: Normal range of motion, supple without lymphadenopathy, JVD, or masses. LUNGS: Breath sounds equal, clear to auscultation bilaterally. No wheezes, and no crackles. No accessory muscle use. HEART: Regular rate and rhythm, normal S1 and S2 without murmur, rub or gallop. ABDOMEN: Soft, nontender, not distended, normoactive bowel sounds, no guarding, no rebound, no masses. MUSCULOSKELETAL: tenderness at the left hip, decreased range of motion, pulses 2 + DP, no edema, sensations intact LOWER EXTREMITIES: 2+ pulses, warm, well-perfused. No calf tenderness. No peripheral edema. PSYCHIATRIC: Cooperative. Good eye contact. Appropriate mood and affect. SKIN: Warm, dry, normal turgor, no rashes or lesions noted, normal capillary refill. Laboratory Results - last 24 hr CBC, BMP 05/11/18 22:30 05/11/18 22:30 ASSESSMENT/PLAN: Patient is a 78 y/o female with a history of HTN, hypothyroid, glaucoma, and HLD who presents with left hip fracture. #left hip fracture - Per Ortho patient to have surgery in the morning, Dr. Feng - NPO after midnight - EKG no acute changes - RCI score 1 < .9 % risk of CVA, 1 point for questionable CAD history - Brannon score .2 risk of LA or Cardiac disease - type and screen done, f/u morning labs - f/u CXR ordered for this morning - one dose heparin before midnight, anticoaguation held - hip xray: left hip fracture - f/u spine Xray #hypothyroidism - continue levothyroxine #conjunctivits - continue ciprofloxacin drops - per patient, needs continued treatment for itchiness #HTN - continue home medications, meds need to be reconciled - stress test history in November with no abnormalities #HLD - continue home medications Visit type - Emergency Visit Emergency Visit: Yes ED Registration Date: 05/11/18 Care time: The patient presented to the Emergency Department on the above date and was hospitalized for further evaluation of their emergent condition. - New Patient This patient is new to me today: Yes Date on this admission: 05/12/18 - Critical Care Critical Care patient: No
[2018-05-12] MEDS ORDERED: LEVOTHYROXINE NA 88 MCG TABLET (FP) PO SCH (07:00)
[2018-05-12 09:06] LABS: ALBUMIN 2.9 g/dl (3.4-5.0); ALK PHOS 69 U/L (45-117); ANION GAP 7 MMOL/L (8-16); BILIRUBIN,TOTAL 0.3 mg/dL (0.2-1); BLOOD UREA NITROGEN 16 mg/dL (7-18); CALCIUM 8.9 mg/dL (8.5-10.1); CHLORIDE 107 mmol/L (98-107); CO2 27 mmol/L (21-32); CREATININE 0.5 mg/dL (0.55-1.3); GLUCOSE,RANDOM 103 mg/dL (74-106); MAGNESIUM 2.4 mg/dL (1.8-2.4); PHOSPHOROUS 4.2 mg/dL (2.5-4.9); POTASSIUM 4.2 mmol/L (3.5-5.1); SGOT/AST 30 U/L (15-37); SGPT/ALT 45 U/L (13-61); SODIUM 141 mmol/L (136-145); TOT PROT 6.4 g/dl (6.4-8.2)
[2018-05-12 09:15] LABS: HEMATOCRIT 40.2 % (32.4-45.2); HEMOGLOBIN 13.2 GM/dL (10.7-15.3); MCH 30.3 pg (25.7-33.7); MCHC 32.7 g/dl (32.0-36.0); MEAN CELL VOLUME 92.5 fl (80-96); MEAN PLT VOLUME 7.1 fl (7.5-11.1); PLATELET COUNT 390 K/MM3 (134-434); RBC 4.35 M/mm3 (3.60-5.2); RDW 13.3 % (11.6-15.6); WHITE BLOOD COUNT 9.3 K/mm3 (4.0-10.0)
--- NOTE | 2018-05-12 09:22 | PN ---
Progress Note (short form) - Note Progress Note: ORTHOPEDIC SURGERY PROGRESS NOTE SUBJECTIVE No acute events overnight. No complaints currently. Denies chest pain, shortness of breath, or calf pain. No nausea or vomiting. Tolerating oral intake. Pain controlled. Patient is feeling little pain in her left hip/buttock. VITAL SIGNS Vital Signs Period Temp Pulse Resp BP Sys/Vann Pulse Ox Last 24 Hr 98.2 F-99.3 F 78-86 16-18 115-149/55-74 94-97 PHYSICAL EXAMINATION General: Alert, oriented, cooperative and no distress Lower Extremity: Skin intact, no lesions, rashes or ulcers noted. Muscle mass equal and symmetric to contralateral side. No atrophy noted. No masses or effusions noted. No tenderness to palpation. Full passive and active ROM of the left hip, free from pain. EHL/TA/GS motor intact; SILT distally; 2+ DP pulses; Cap refill brisk. DVT Exam: No evidence of DVT seen on physical exam; No cords or calf tenderness ; MEDS Current Medications Generic Name Dose Route Start Last Admin Trade Name Christianq PRN Reason Stop Dose Admin Atorvastatin Calcium 20 mg 05/12/18 10:00 Lipitor - PO DAILY [facility] Ciprofloxacin 2 drop 05/12/18 06:00 Ciloxan 0.3% Eye Drops -- OU Q4HWA [facility] Heparin Sodium (Porcine) 5,000 unit 05/12/18 23:47 Heparin - SQ 05/12/18 23:48 ONCE ONE Levothyroxine Sodium 88 mcg 05/12/18 07:00 05/12/18 06:13 Synthroid - PO 88 mcg DAILY@0700 [facility] Administration Lisinopril 5 mg 05/12/18 10:00 Prinivil PO DAILY [facility] Ranitidine HCl 150 mg 05/12/18 10:00 Zantac - PO DAILY [facility] CBC,CMP WBC 10.9 K/mm3 (4.0-10.0) H 05/11/18 22:30 RBC 4.80 M/mm3 (3.60-5.2) 05/11/18 22:30 Hgb 14.3 GM/dL (10.7-15.3) 05/11/18 22:30 Hct 44.2 % (32.4-45.2) 05/11/18 22:30 MCV 92.2 fl (80-96) 05/11/18 22:30 MCH 29.9 pg (25.7-33.7) 05/11/18 22:30 MCHC 32.4 g/dl (32.0-36.0) 05/11/18 22:30 RDW 13.4 % (11.6-15.6) 05/11/18 22:30 Plt Count 406 K/MM3 (134-434) 05/11/18 22:30 MPV 6.8 fl (7.5-11.1) L 05/11/18 22:30 Absolute Neuts (auto) 6.5 K/mm3 (1.5-8.0) 05/11/18 22:30 Neutrophils % 59.5 % (42.8-82.8) 05/11/18 22:30 Lymphocytes % 32.6 % (8-40) 05/11/18 22:30 Monocytes % 7.0 % (3.8-10.2) 05/11/18 22: Eosinophils % 0.6 % (0-4.5) D 05/11/18 22:30 Basophils % 0.3 % (0-2.0) 05/11/18 22:30 Nucleated RBC % 0 % (0-0) 05/11/18 22:30 Sodium 141 mmol/L (136-145) 05/12/18 07:30 Potassium 4.2 mmol/L (3.5-5.1) 05/12/18 07:30 Chloride 107 mmol/L (98-107) 05/12/18 07:30 Carbon Dioxide 27 mmol/L (21-32) 05/12/18 07:30 Anion Gap 7 MMOL/L (8-16) L 05/12/18 07:30 BUN 16 mg/dL (7-18) 05/12/18 07:30 Creatinine 0.5 mg/dL (0.55-1.3) L 05/12/18 07:30 Creat Clearance w eGFR > 60 (>60) 05/12/18 07:30 Random Glucose 103 mg/dL (74-106) 05/12/18 07:30 Calcium 8.9 mg/dL (8.5-10.1) 05/12/18 07:30 Phosphorus 4.2 mg/dL (2.5-4.9) 11/02/18 07:30 Magnesium 2.4 mg/dL (1.8-2.4) 05/12/18 07:30 Total Bilirubin 0.3 mg/dL (0.2-1) 05/12/18 07:30 AST 30 U/L (15-37) 05/12/18 07:30 ALT 45 U/L (13-61) 05/12/18 07:30 Alkaline Phosphatase 69 U/L (45-117) 05/12/18 07:30 Total Protein 6.4 g/dl (6.4-8.2) 05/12/18 07:30 Albumin 2.9 g/dl (3.4-5.0) L 05/12/18 07:30 IMAGING Radiographs of the Left Femur taken in the ER were personally reviewed by me today show a possible impacted fracture of the Left Femoral Neck. There are signs of arthritis including bone spurring, sclerosis, and joint space narrowing of the left hip. No other bony lesions, dislocations, or subluxations seen. ASSESSMENT AND PLAN 78 F with acute vs. chronic left femoral neck fracture. Seeing as her pain has reduced significantly overnight, and she is moving her hip with little to no pain, I think it is reasonable to confirm an acute fracture of the left hip with an MRI. I have ordered the MRI Pelvis w/o contrast. - Pain control: Transition to oral pain medications, minimize narcotic use - DVT prophylaxis - Heparin on hold today until MRI results obtained. - NPO - Appreciate medical management (Nutrition optimization, Medical clearance note) - Non-weight bearing left lower extremity - Follow up MRI results and will decide on whether or not to proceed with surgery at that time. - Discussed this plan with the patient's son Pete by phone. Kevon Feng DO Orthopedic Surgery [phone]
[2018-05-12] MEDS: CIPROFLOXACIN 0.3% EYE DROPS 5 ML BOTTLE OU SCH ×4 (10:00→21:18)
[2018-05-12] MEDS ORDERED: FUROSEMIDE 20 MG TABLET (FP) PO SCH (10:00)
[2018-05-12] MEDS ORDERED: CLOPIDOGREL BISULFATE 75 MG TABLET (FP) PO SCH (10:00)
--- NOTE | 2018-05-12 10:48 | EKG ---
Test Reason : Blood Pressure : / mmHG Vent. Rate : 077 BPM Atrial Rate : 077 BPM P-R Int : 142 ms QRS Dur : 090 ms QT Int : 396 ms P-R-T Axes : 060 014 022 degrees QTc Int : 448 ms POOR DATA QUALITY, INTERPRETATION MAY BE ADVERSELY AFFECTED SINUS RHYTHM WITH PREMATURE ATRIAL COMPLEXES WHEN COMPARED WITH ECG OF 18-MAR-2018 19:02, PREMATURE ATRIAL COMPLEXES ARE NOW PRESENT Confirmed by SUZIE BUENO MD ([id number]) on 05/12/2018 10:47:51 AM Referred By: Confirmed By:SUZIE BUENO MD
[2018-05-12] MEDS: LISINOPRIL 5 MG TABLET (FP) PO SCH (10:50)
[2018-05-12] MEDS: RANITIDINE HCL 150 MG TABLET (FP) PO SCH (10:50)
[2018-05-12] MEDS: ATORVASTATIN CA 20 MG TABLET (FP) PO SCH (10:51)
--- NOTE | 2018-05-12 11:03 | PN ---
Physical Exam: SUBJECTIVE: Patient seen and examined. No acute events overnight. Pt. denies any complaints. ROS negative OBJECTIVE: Vital Signs Period Temp Pulse Resp BP Sys/Vann Pulse Ox Last 24 Hr 98.2 F-99.3 F 78-86 16-18 115-149/55-74 94-97 GENERAL: The patient is awake, alert, in no acute distress. EYES: PERRL, extraocular movements intact, sclera anicteric, conjunctiva clear. No ptosis. ENT: Ears normal, nares patent, oropharynx clear without exudates, moist mucous membranes. LUNGS: Breath sounds equal, clear to auscultation bilaterally, no wheezes, no crackles, no accessory muscle use. HEART: Regular rate and rhythm, S1, S2 without murmur, rub or gallop. ABDOMEN: Soft, nontender, nondistended, normoactive bowel sounds, no guarding, no rebound EXTREMITIES: 2+ dorsal pedal pulses, warm, well-perfused, moves all limbs spontaneously, no discrepancy in leg lengths, no calf tenderness, normal ROM, no tenderness to palpation of left hip, no edema. NEUROLOGICAL: Normal speech, gait not observed. PSYCH: Normal mood, normal affect. SKIN: Warm, dry, normal turgor, no rashes or lesions noted Laboratory Results - last 24 hr 05/11/18 05/11/18 05/11/18 19:56 22:30 22:30 WBC 10.9 H RBC 4.80 Hgb 14.3 Hct 44.2 MCV 92.2 MCH 29.9 MCHC 32.4 RDW 13.4 Plt Count 406 MPV 6.8 L Absolute Neuts (auto) 6.5 Neutrophils % 59.5 Lymphocytes % 32.6 Monocytes % 7.0 Eosinophils % 0.6 D Basophils % 0.3 Nucleated RBC % 0 PT with INR 10.20 INR 0.87 PTT (Actin FS) 19.8 L Sodium Potassium Chloride Carbon Dioxide Anion Gap BUN Creatinine Creat Clearance w eGFR Random Glucose Calcium Phosphorus Magnesium Total Bilirubin AST ALT Alkaline Phosphatase Total Protein Albumin Urine Color Straw Urine Appearance Clear Urine pH 7.0 Ur Specific [place] 1.008 L Urine Protein Negative Urine Glucose (UA) Negative Urine Ketones Negative Urine Blood Negative Urine Nitrite Negative Urine Bilirubin Negative Urine Urobilinogen Negative Ur Leukocyte Esterase Negative Blood Type Antibody Screen 05/11/18 05/11/18 05/12/18 22:30 22:30 01:38 WBC RBC Hgb Hct MCV MCH MCHC RDW Plt Count MPV Absolute Neuts (auto) Neutrophils % Lymphocytes % Monocytes % Eosinophils % Basophils % Nucleated RBC % PT with INR INR PTT (Actin FS) Sodium 140 Potassium 4.4 Chloride 104 Carbon Dioxide 30 Anion Gap 7 L BUN 19 H Creatinine 0.6 Creat Clearance w eGFR > 60 Random Glucose 113 H Calcium 9.5 Phosphorus Magnesium Total Bilirubin 0.3 AST 19 ALT 44 Alkaline Phosphatase 85 Total Protein 7.2 Albumin 3.4 Urine Color Urine Appearance Urine pH Ur Specific [place] Urine Protein Urine Glucose (UA) Urine Ketones Urine Blood Urine Nitrite Urine Bilirubin Urine Urobilinogen Ur Leukocyte Esterase Blood Type O POSITIVE O POSITIVE Antibody Screen Negative 05/12/18 05/12/18 07:30 07:30 WBC 9.3 RBC 4.35 Hgb 13.2 Hct 40.2 MCV 92.5 MCH 30.3 MCHC 32.7 RDW 13.3 Plt Count 390 MPV 7.1 L Absolute Neuts (auto) Neutrophils % Lymphocytes % Monocytes % Eosinophils % Basophils % Nucleated RBC % PT with INR INR PTT (Actin FS) Sodium 141 Potassium 4.2 Chloride 107 Carbon Dioxide 27 Anion Gap 7 L BUN 16 Creatinine 0.5 L Creat Clearance w eGFR > 60 Random Glucose 103 Calcium 8.9 Phosphorus 4.2 Magnesium 2.4 Total Bilirubin 0.3 AST 30 ALT 45 Alkaline Phosphatase 69 Total Protein 6.4 Albumin 2.9 L Urine Color Urine Appearance Urine pH Ur Specific [place] Urine Protein Urine Glucose (UA) Urine Ketones Urine Blood Urine Nitrite Urine Bilirubin Urine Urobilinogen Ur Leukocyte Esterase Blood Type Antibody Screen Active Medications Generic Name Dose Route Start Last Admin Trade Name Moisés PRN Reason Stop Dose Admin Atorvastatin Calcium 20 mg 05/12/18 10:00 05/12/18 10:51 Lipitor - PO 20 mg DAILY [facility] Administration Ciprofloxacin 2 drop 05/12/18 06:00 Ciloxan 0.3% Eye Drops -- OU Q4HWA [facility] Heparin Sodium (Porcine) 5,000 unit 05/12/18 23:47 Heparin - SQ 05/12/18 23:48 ONCE ONE Levothyroxine Sodium 88 mcg 05/12/18 07:00 05/12/18 06:13 Synthroid - PO 88 mcg DAILY@0700 [facility] Administration Lisinopril 5 mg 05/12/18 10:00 05/12/18 10:50 Prinivil PO 5 mg DAILY [facility] Administration Ranitidine HCl 150 mg 05/12/18 10:00 05/12/18 10:50 Zantac - PO 150 mg DAILY [facility]IREE Administration ASSESSMENT/PLAN: Pt. is a 78 y/o F with PMHx. of HTN, hypothyroidism, glaucoma, and HLD who presented to ED with L hip pain. #Musculoskeletal -L hip pain able to range the limb, no tenderness F/u MRI results. if inflammed will consider steroid injection f/u PT will likely need rehab #Cardiology -HTN c/w home Lisinopril 5 -HLD c/w home lipitor #Endocrinology -Hypothyroidism c/w home synthroid 75 mcg #Opthamology -Glaucoma c/w eye drops #FEN -not on NS -lytes wnl -Na controlled #PPx -on plavix Visit type - Emergency Visit Emergency Visit: Yes ED Registration Date: 05/11/18 Care time: The patient presented to the Emergency Department on the above date and was hospitalized for further evaluation of their emergent condition. - New Patient This patient is new to me today: Yes Date on this admission: 05/12/18 - Critical Care Critical Care patient: No - Discharge Referral Referred to [facility] Med P.C.: No
[2018-05-12] MEDS ORDERED: ALBUTEROL SO4 8 GM HFA INHALER IH SCH (14:00)
[2018-05-12] MEDS: prednisoLONE ACETATE 1% OPHTH SUSP 5 ML BOTTLE OU SCH ×3 (14:05→21:19)
--- NOTE | 2018-05-12 14:06 | PN ---
Teaching Attending Note Name of Resident: Tank Cacerse ATTENDING PHYSICIAN STATEMENT I saw and evaluated the patient. I reviewed the resident's note and discussed the case with the resident. I agree with the resident's findings and plan as documented. SUBJECTIVE: No fever or chills. No abd pain, has L hip pain only with movement. denies recent fall. hazy L cornea. OBJECTIVE: NAD. Cv: RRR, no mRG Lungs: CTAB Ext: no edema, no erythema, no rotation . DP 2+ TTP over the lateral posterior L hip . ASSESSMENT AND PLAN: 78 y/o lady with h/o glaucoma CAD, , HTn and Hypothyroidism, who presented with L hip pain. 1- L hip pain, with a Fx of L fem neck on xray . - case was d/w ortho. MRi to be done - pain control if needed - immobilization for now. - hold Asa for now 2- h/o CAD: hold antiplt. cont lisinopril, and statin. no h/o stents 3- HTN: cont lisinopril. hold lasix HLOC
[2018-05-12] MEDS ORDERED: ALBUTEROL SO4 8 GM HFA INHALER IH PRN (14:30)
[2018-05-12] MEDS ORDERED: PT OWN MED DRAWER 7, Y5N ONE ×3 (14:46→21:17)
[2018-05-12] MEDS: CALCIUM 500MG/VIT-D 200 UNITS COMBO TABLET (FP) PO SCH (21:19)
[2018-05-12] MEDS ORDERED: HEPARIN NA (PORCINE) 5,000 UNITS/ML 1ML VIAL SQ ONE (23:47)
[2018-05-13] MEDS ORDERED: PT OWN MED DRAWER 7, Y5N ONE ×6 (06:02→18:21)
[2018-05-13] MEDS: LEVOTHYROXINE NA 75 MCG TABLET (FP) PO SCH (06:03)
[2018-05-13] MEDS: CIPROFLOXACIN 0.3% EYE DROPS 5 ML BOTTLE OU SCH ×6 (06:03→21:25)
[2018-05-13] MEDS: HEPARIN NA (PORCINE) 5,000 UNITS/ML 1ML VIAL SQ SCH ×3 (08:43→21:24)
[2018-05-13] MEDS: CALCIUM 500MG/VIT-D 200 UNITS COMBO TABLET (FP) PO SCH ×2 (09:58→21:24)
[2018-05-13] MEDS: LISINOPRIL 5 MG TABLET (FP) PO SCH (09:58)
[2018-05-13] MEDS: RANITIDINE HCL 150 MG TABLET (FP) PO SCH (09:58)
[2018-05-13] MEDS: CLOPIDOGREL BISULFATE 75 MG TABLET (FP) PO SCH (09:58)
[2018-05-13] MEDS: prednisoLONE ACETATE 1% OPHTH SUSP 5 ML BOTTLE OU SCH ×4 (09:58→21:26)
[2018-05-13] MEDS: ATORVASTATIN CA 20 MG TABLET (FP) PO SCH (09:58)
[2018-05-13] MEDS ORDERED: TRIAMCINOLONE ACET 40MG/1ML VIAL IJ ONE (10:00)
[2018-05-13] MEDS ORDERED: LIDOCAINE 1% P/F 10 MG/ML VIAL IJ ONE (10:00)
--- NOTE | 2018-05-13 11:43 | PN ---
Progress Note (short form) - Note Progress Note: ORTHOPEDIC SURGERY PROGRESS NOTE SUBJECTIVE No acute events overnight. No complaints currently. Denies chest pain, shortness of breath, or calf pain. No nausea or vomiting. Tolerating oral intake. Pain controlled. Patient is feeling little pain in her left hip/buttock. VITAL SIGNS Vital Signs Period Temp Pulse Resp BP Sys/Vann Pulse Ox Last 24 Hr 98 F-98.9 F 72-76 18-20 116-157/55-71 96-98 PHYSICAL EXAMINATION General: Alert, oriented, cooperative and no distress Lower Extremity: Skin intact, no lesions, rashes or ulcers noted. Muscle mass equal and symmetric to contralateral side. No atrophy noted. No masses or effusions noted. No tenderness to palpation. Full passive and active ROM of the left hip, free from pain. EHL/TA/GS motor intact; SILT distally; 2+ DP pulses; Cap refill brisk. DVT Exam: No evidence of DVT seen on physical exam; No cords or calf tenderness ; MEDS Current Medications Generic Name Dose Route Start Last Admin Trade Name Christianq PRN Reason Stop Dose Admin Atorvastatin Calcium 20 mg 05/12/18 10:00 Lipitor - PO DAILY [facility] Ciprofloxacin 2 drop 05/12/18 06:00 Ciloxan 0.3% Eye Drops -- OU Q4HWA [facility] Heparin Sodium (Porcine) 5,000 unit 05/12/18 23:47 Heparin - SQ 05/12/18 23:48 ONCE ONE Levothyroxine Sodium 88 mcg 05/12/18 07:00 05/12/18 06:13 Synthroid - PO 88 mcg DAILY@0700 [facility] Administration Lisinopril 5 mg 05/12/18 10:00 Prinivil PO DAILY [facility] Ranitidine HCl 150 mg 05/12/18 10:00 Zantac - PO DAILY [facility] LABS CBCD WBC 9.3 K/mm3 (4.0-10.0) 05/12/18 07:30 RBC 4.35 M/mm3 (3.60-5.2) 05/12/18 07:30 Hgb 13.2 GM/dL (10.7-15.3) 05/12/18 07:30 Hct 40.2 % (32.4-45.2) 05/12/18 07:30 MCV 92.5 fl (80-96) 05/12/18 07:30 MCHC 32.7 g/dl (32.0-36.0) 05/12/18 07:30 RDW 13.3 % (11.6-15.6) 05/12/18 07:30 Plt Count 390 K/MM3 (134-434) 05/12/18 07:30 MPV 7.1 fl (7.5-11.1) L 05/12/18 07:30 CMP Sodium 141 mmol/L (136-145) 05/12/18 07:30 Potassium 4.2 mmol/L (3.5-5.1) 05/12/18 07:30 Chloride 107 mmol/L (98-107) 05/12/18 07:30 Carbon Dioxide 27 mmol/L (21-32) 05/12/18 07:30 Anion Gap 7 MMOL/L (8-16) L 05/12/18 07:30 BUN 16 mg/dL (7-18) 05/12/18 07:30 Creatinine 0.5 mg/dL (0.55-1.3) L 05/12/18 07:30 Creat Clearance w eGFR > 60 (>60) 05/12/18 07:30 Calcium 8.9 mg/dL (8.5-10.1) 05/12/18 07:30 Total Bilirubin 0.3 mg/dL (0.2-1) 05/12/18 07:30 AST 30 U/L (15-37) 05/12/18 07:30 ALT 45 U/L (13-61) 05/12/18 07:30 Alkaline Phosphatase 69 U/L (45-117) 05/12/18 07:30 Total Protein 6.4 g/dl (6.4-8.2) 05/12/18 07:30 Albumin 2.9 g/dl (3.4-5.0) L 05/12/18 07:30 IMAGING MRI of the Pelvis was reviewed personally by me demonstrates a chronic left femoral neck fracture, and acute left greater trochanteric bursitis. There is also intermediate arthritis of the left hip characterized by joint space narrowing and bone spurring and sclerosis. No acute fractures, dislocations, subluxations, or any bony lesions seen. ASSESSMENT AND PLAN 78 F with (1) acute left greater trochanteric bursitis, (2) chronic left femoral neck fracture, and (3) left hip post-traumatic arthritis. - Pain control: Transition to oral pain medications, minimize narcotic use - DVT prophylaxis - Appreciate medical management - Weight-bearing as tolerated left lower extremity - Physical therapy - Cortisone injection to the left greater trochanteric bursa - Discussed this plan with the patient's son Pete at bedside, and he agreed to the plan. - No further orthopedic intervention at this time. Patient can follow up with me in the office 1 week after discharge. Call [phone] to make an appointment. PROCEDURE NOTE - Left Greater Trochanteric Bursa Cortisone Injection Consent was obtained after discussion of the risks, benefits, alternatives, including, but not limited to bleeding, pain, infection, post injection-flare, skin disruption or hypopigmentation, and temporary increase in serum blood glucose. Laterality was confirmed (timeout). The patient was positioned in the lateral decubitus position. The greater trochanteric bursa was identified by palpating the bony landmarks. The area of maximal tenderness was marked over the greater trochanter. The area was prepped with betadine swabs. The subcutaneous tissue over the left greater trochanter was then inflitrated with 3 cc of 1% Lidocaine. A formulation of 1 cc of 40 mg/mL Kenalog and 7 cc of 1% lidocaine was injected and spread in the area of the greater trochanter with a 22 gauge needle without difficulty. Bony feedback was used to ensure the needle was in appropriate position. The site was cleaned and dressed with a band aid. The patient tolerated this well and there were no complications. Kevon Feng, Orthopedic Surgery [phone]
[2018-05-13] MEDS ORDERED: ACETAMINOPHEN 325 MG TABLET (FP) PO PRN (14:41)
--- NOTE | 2018-05-13 14:46 | PN ---
Teaching Attending Note Name of Resident: Red Grey ATTENDING PHYSICIAN STATEMENT I saw and evaluated the patient. I reviewed the resident's note and discussed the case with the resident. I agree with the resident's findings and plan as documented. SUBJECTIVE: No fever or chills . No abd pain. no CP . no SOB. L posterior hip pain only when she moves . OBJECTIVE: NAD. Cv: RRR, no MRG Lungs: CTAB Ext: no edema, no erythema, no rotation . DP 2+ TTP over the lateral posterior L hip. ASSESSMENT AND PLAN: 78 y/o lady with h/o glaucoma CAD, , HTn and Hypothyroidism, who presented with L hip pain. 1-Old Fx of L fem neck with L trochanteric bursitis: - s/p steroid injection today - tylenol for pain - PT : WBAT 2- h/o CAD: cont plavix t. cont lisinopril, and statin. 3- HTN: cont lisinopril. resume home lasix need rehab placement. appreciate SW help. referral was sent
--- NOTE | 2018-05-13 15:48 | PN ---
Physical Exam: SUBJECTIVE: Patient seen and examined at bedside. No acute events. Pt feels much better OBJECTIVE: Vital Signs Period Temp Pulse Resp BP Sys/Vann Pulse Ox Last 24 Hr 97.9 F-98.5 F 73-77 18-20 116-157/62-71 96-98 Gen:comfortable, NAD, in bed HEENT: L eye cataract with opacification Neck: supple, no jvd Cardiac: irreg rhythm, no mrg noted Pulm: cta b/l Abd: obese, nondistended, no guarding, normal bs Ext: 2+ pulses, decreased pain at left hip Active Medications Generic Name Dose Route Start Last Admin Trade Name Freq PRN Reason Stop Dose Admin Acetaminophen 650 mg 05/13/18 14:41 Tylenol - PO Q6H PRN PAIN Albuterol Sulfate 2 puff 05/12/18 14:30 Ventolin Hfa Inhaler - IH Q6H PRN ASTHMA Atorvastatin Calcium 20 mg 05/12/18 10:00 05/13/18 09:58 Lipitor - PO 20 mg DAILY [facility] Administration Calcium Carbonate/Cholecalciferol 1 tab 05/12/18 22:00 05/13/18 09:58 Os-Hari 500+D - PO 1 tab BID [facility] Administration Ciprofloxacin 2 drop 05/12/18 06:00 05/13/18 13:38 Ciloxan 0.3% Eye Drops -- OU 2 drop Q4HWA [facility] Administration Clopidogrel Bisulfate 75 mg 05/13/18 10:00 05/13/18 09:58 Plavix - PO 75 mg DAILY [facility] Administration Furosemide 20 mg 05/14/18 10:00 Lasix - PO DAILY [facility] Heparin Sodium (Porcine) 5,000 unit 05/13/18 08:00 05/13/18 13:32 Heparin - SQ 5,000 unit TID [facility] Administration Levothyroxine Sodium 75 mcg 05/13/18 07:00 05/13/18 06:03 Synthroid - PO 75 mcg DAILY@0700 [facility] Administration Lisinopril 5 mg 05/12/18 10:00 05/13/18 09:58 Prinivil PO 5 mg DAILY [facility] Administration Prednisolone Acetate 1 drop 05/12/18 14:00 05/13/18 13:37 Pred Forte 1% - OU 1 drop QID [facility] Administration Ranitidine HCl 150 mg 05/12/18 10:00 05/13/18 09:58 Zantac - PO 150 mg DAILY [facility] Administration ASSESSMENT/PLAN: Pt is a 78 y/o F with PMH HTN, hypothyroid, glaucoma, and HLD who presented to ED with L hip pain. #L hip pain -much improved -able to range the limb, no tenderness -seen by ortho, had steroid injection -Walked 25' with PT -will need rehab #HTN -c/w home Lisinopril 5 #Hypothyroid -c/w home synthroid 75 mcg #Glaucoma -c/w eye drops #HLD -c/w home lipitor #FEN -not on NS -lytes wnl -Na controlled #PPx -on plavix #Dispo -pending rehab Red Grey MD PGY-2 IM Visit type - Emergency Visit Emergency Visit: No - New Patient This patient is new to me today: No - Critical Care Critical Care patient: No
[2018-05-13] MEDS ORDERED: SENNOSIDES 8.6MG TABLET (FP) PO PRN (19:13)
[2018-05-13] MEDS: DOCUSATE SODIUM 100 MG CAPSULE (FP) PO SCH (21:24)
[2018-05-14] MEDS ORDERED: PATIENT'S OWN MEDICATION (NON-FORMULARY) (Alendronate Sodium [Binosto] 70 MG) PO SCH (02:56)
[2018-05-14] MEDS: HEPARIN NA (PORCINE) 5,000 UNITS/ML 1ML VIAL SQ SCH ×3 (06:18→21:14)
[2018-05-14] MEDS: CIPROFLOXACIN 0.3% EYE DROPS 5 ML BOTTLE OU SCH ×5 (06:19→21:15)
[2018-05-14] MEDS: LEVOTHYROXINE NA 75 MCG TABLET (FP) PO SCH (06:19)
[2018-05-14] MEDS ORDERED: PT OWN MED DRAWER 7, Y5N ONE ×4 (09:29→20:59)
[2018-05-14] MEDS: ATORVASTATIN CA 20 MG TABLET (FP) PO SCH (09:30)
[2018-05-14] MEDS: DOCUSATE SODIUM 100 MG CAPSULE (FP) PO SCH (09:30)
[2018-05-14] MEDS: CALCIUM 500MG/VIT-D 200 UNITS COMBO TABLET (FP) PO SCH ×2 (09:30→21:14)
[2018-05-14] MEDS: CLOPIDOGREL BISULFATE 75 MG TABLET (FP) PO SCH (09:30)
[2018-05-14] MEDS: RANITIDINE HCL 150 MG TABLET (FP) PO SCH (09:30)
[2018-05-14] MEDS: FUROSEMIDE 20 MG TABLET (FP) PO SCH (09:30)
[2018-05-14] MEDS: LISINOPRIL 5 MG TABLET (FP) PO SCH (09:30)
[2018-05-14] MEDS: prednisoLONE ACETATE 1% OPHTH SUSP 5 ML BOTTLE OU SCH ×4 (09:31→21:15)
--- NOTE | 2018-05-14 10:40 | PN ---
Progress Note (short form) - Note Progress Note: ORTHOPEDIC SURGERY PROGRESS NOTE SUBJECTIVE No acute events overnight. No complaints currently. States her pain has improved significantly. Denies chest pain, shortness of breath, or calf pain. No nausea or vomiting. Tolerating oral intake. Pain controlled. Patient is feeling very little pain in her left hip/buttock. VITAL SIGNS Vital Signs Period Temp Pulse Resp BP Sys/Vann Pulse Ox Last 24 Hr 97.9 F-98.4 F 72-77 20-20 121-129/59-67 98 PHYSICAL EXAMINATION General: Alert, oriented, cooperative and no distress Lower Extremity: Skin intact, no lesions, rashes or ulcers noted. Muscle mass equal and symmetric to contralateral side. No atrophy noted. No masses or effusions noted. No tenderness to palpation. Full passive and active ROM of the left hip, free from pain. EHL/TA/GS motor intact; SILT distally; 2+ DP pulses; Cap refill brisk. DVT Exam: No evidence of DVT seen on physical exam; No cords or calf tenderness ; MEDS Current Medications Acetaminophen (Tylenol -) 650 mg PO Q6H PRN PRN Reason: PAIN Albuterol Sulfate (Ventolin Hfa Inhaler -) 2 puff IH Q6H PRN PRN Reason: ASTHMA Atorvastatin Calcium (Lipitor -) 20 mg PO DAILY [facility] Last Admin: 05/14/18 09:30 Dose: 20 mg Calcium Carbonate/Cholecalciferol (Os-Hari 500+D -) 1 tab PO BID [facility] Last Admin: 05/14/18 09:30 Dose: 1 tab Ciprofloxacin (Ciloxan 0.3% Eye Drops --) 2 drop OU Q4HWA [facility] Last Admin: 05/14/18 09:30 Dose: 2 drop Clopidogrel Bisulfate (Plavix -) 75 mg PO DAILY [facility] Last Admin: 05/14/18 09:30 Dose: 75 mg Docusate Sodium (Colace -) 100 mg PO DAILY [facility] Last Admin: 05/14/18 09:30 Dose: 100 mg Furosemide (Lasix -) 20 mg PO DAILY [facility] Last Admin: 05/14/18 09:30 Dose: 20 mg Heparin Sodium (Porcine) (Heparin -) 5,000 unit SQ TID [facility] Last Admin: 05/14/18 06:18 Dose: 5,000 unit Levothyroxine Sodium (Synthroid -) 75 mcg PO DAILY@0700 [facility] Last Admin: 05/14/18 06:19 Dose: 75 mcg Lisinopril (Prinivil) 5 mg PO DAILY [facility] Last Admin: 05/14/18 09:30 Dose: 5 mg Prednisolone Acetate (Pred Forte 1% -) 1 drop OU QID [facility] Last Admin: 05/14/18 09:31 Dose: 1 drop Ranitidine HCl (Zantac -) 150 mg PO DAILY [facility] Last Admin: 05/14/18 09:30 Dose: 150 mg Senna (Senna -) 2 tab PO HS PRN PRN Reason: CONSTIPATION LABS CBCD WBC 9.3 K/mm3 (4.0-10.0) 05/12/18 07:30 RBC 4.35 M/mm3 (3.60-5.2) 05/12/18 07:30 Hgb 13.2 GM/dL (10.7-15.3) 05/12/18 07:30 Hct 40.2 % (32.4-45.2) 05/12/18 07:30 MCV 92.5 fl (80-96) 05/12/18 07:30 MCHC 32.7 g/dl (32.0-36.0) 05/12/18 07:30 RDW 13.3 % (11.6-15.6) 05/12/18 07:30 Plt Count 390 K/MM3 (134-434) 05/12/18 07:30 MPV 7.1 fl (7.5-11.1) L 05/12/18 07:30 CMP Sodium 141 mmol/L (136-145) 05/12/18 07:30 Potassium 4.2 mmol/L (3.5-5.1) 05/12/18 07:30 Chloride 107 mmol/L (98-107) 05/12/18 07:30 Carbon Dioxide 27 mmol/L (21-32) 05/12/18 07:30 Anion Gap 7 MMOL/L (8-16) L 05/12/18 07:30 BUN 16 mg/dL (7-18) 05/12/18 07:30 Creatinine 0.5 mg/dL (0.55-1.3) L 05/12/18 07:30 Creat Clearance w eGFR > 60 (>60) 05/12/18 07:30 Calcium 8.9 mg/dL (8.5-10.1) 05/12/18 07:30 Total Bilirubin 0.3 mg/dL (0.2-1) 05/12/18 07:30 AST 30 U/L (15-37) 05/12/18 07:30 ALT 45 U/L (13-61) 05/12/18 07:30 Alkaline Phosphatase 69 U/L (45-117) 05/12/18 07:30 Total Protein 6.4 g/dl (6.4-8.2) 05/12/18 07:30 Albumin 2.9 g/dl (3.4-5.0) L 05/12/18 07:30 ASSESSMENT AND PLAN 78 F with (1) acute left greater trochanteric bursitis, (2) chronic left femoral neck fracture, and (3) left hip post-traumatic arthritis. - Pain control: Transition to oral pain medications, minimize narcotic use - DVT prophylaxis - Appreciate medical management - Weight-bearing as tolerated left lower extremity - Physical therapy - No further orthopedic intervention at this time. Patient can follow up with me in the office 1 week after discharge. Call [phone] to make an appointment. Kevon Feng, Orthopedic Surgery [phone]
--- NOTE | 2018-05-14 14:42 | PN ---
Progress Note (short form) - Note Progress Note: Subjective: No fever or chills. L hip pain with movement still Objective: Vital Signs: Last Vital Signs Temp Pulse Resp BP Pulse Ox 98.4 F 74 20 121/64 98 05/14/18 09:00 05/14/18 09:00 05/14/18 09:00 05/14/18 09:00 05/13/18 20:42 Physical Exam: NAD. Cv: RRR, no MRG Lungs: CTAB Ext: no edema, no erythema. ASSESSMENT AND PLAN: 78 y/o lady with h/o glaucoma CAD, , HTn and Hypothyroidism, who presented with L hip pain. 1-Old Fx of L fem neck with L trochanteric bursitis: improved - s/p steroid injection yesterday - tylenol for pain - PT: WBAT 2- h/o CAD: cont plavix . cont lisinopril, and statin. 3- HTN: cont lisinopril and lasix need rehab placement. Visit type - Emergency Visit Emergency Visit: Yes ED Registration Date: 05/11/18 Care time: The patient presented to the Emergency Department on the above date and was hospitalized for further evaluation of their emergent condition. - New Patient This patient is new to me today: No - Critical Care Critical Care patient: No
[2018-05-15] MEDS: HEPARIN NA (PORCINE) 5,000 UNITS/ML 1ML VIAL SQ SCH ×2 (06:23→14:25)
[2018-05-15] MEDS: LEVOTHYROXINE NA 75 MCG TABLET (FP) PO SCH (06:23)
[2018-05-15] MEDS: CIPROFLOXACIN 0.3% EYE DROPS 5 ML BOTTLE OU SCH ×4 (06:23→17:30)
--- NOTE | 2018-05-15 09:13 | PN ---
Progress Note (short form) - Note Progress Note: ORTHOPEDIC SURGERY PROGRESS NOTE SUBJECTIVE No acute events overnight. No complaints currently. Ambulating with PT. She states the pain over injection site has improved. Denies chest pain, shortness of breath, or calf pain. No nausea or vomiting. Tolerating oral intake. Pain controlled. VITAL SIGNS Vital Signs Period Temp Pulse Resp BP Sys/Vann Pulse Ox Last 24 Hr 98.1 F-98.9 F 66-70 20-20 114-128/62-66 PHYSICAL EXAMINATION General: Alert, oriented, cooperative and no distress Lower Extremity: No erythema or swelling over injection site. No lesions, rashes or ulcers noted. Muscle mass equal and symmetric to contralateral side. No atrophy noted. No masses or effusions noted. No tenderness to palpation. Full passive and active ROM of the left hip, free from pain. EHL/TA/GS motor intact; SILT distally; 2+ DP pulses; Cap refill brisk. DVT Exam: No evidence of DVT seen on physical exam; No cords or calf tenderness ; MEDICATIONS Home Medication List Medication Instructions Recorded Confirmed Type Alendronate Sodium [Binosto] 70 mg PO DAILY 03/18/18 05/12/18 History Atorvastatin Ca [Lipitor] 20 mg PO DAILY 03/18/18 05/12/18 History Clopidogrel Bisulfate [Plavix] 75 mg PO DAILY 03/18/18 05/12/18 History Furosemide [Lasix] 20 mg PO DAILY 03/18/18 05/12/18 History Lisinopril 5 mg PO DAILY 03/18/18 05/12/18 History Albuterol Sulfate Inhaler - 1 puff PRN 05/12/18 05/12/18 History [Ventolin HFA Inhaler -] Calcium Carbonate/Vitamin D3 1 each PO BID 05/12/18 05/12/18 History [Calcium 500-Vit D3 200 Tablet] Levothyroxine [Synthroid -] 75 mcg PO DAILY 05/12/18 05/12/18 History Prednisolone 1% Ophthalmic [Pred 1 drop OU QID 05/12/18 05/12/18 History Forte 1% -] Active Medications Generic Name Dose Route Start Last Admin Trade Name Freq PRN Reason Stop Dose Admin Acetaminophen 650 mg 05/13/18 14:41 Tylenol - PO Q6H PRN PAIN Albuterol Sulfate 2 puff 05/12/18 14:30 Ventolin Hfa Inhaler - IH Q6H PRN ASTHMA Atorvastatin Calcium 20 mg 05/12/18 10:00 05/14/18 09:30 Lipitor - PO 20 mg DAILY [facility] Administration Calcium Carbonate/Cholecalciferol 1 tab 05/12/18 22:00 05/14/18 21:14 Os-Hari 500+D - PO 1 tab BID [facility] Administration Ciprofloxacin 2 drop 05/12/18 06:00 05/15/18 06:23 Ciloxan 0.3% Eye Drops -- OU 2 drop Q4HWA [facility] Administration Clopidogrel Bisulfate 75 mg 05/13/18 10:00 05/14/18 09:30 Plavix - PO 75 mg DAILY [facility] Administration Docusate Sodium 100 mg 05/13/18 19:15 05/14/18 09:30 Colace - PO 100 mg DAILY [facility] Administration Furosemide 20 mg 05/14/18 10:00 05/14/18 09:30 Lasix - PO 20 mg DAILY [facility] Administration Heparin Sodium (Porcine) 5,000 unit 05/13/18 08:00 05/15/18 06:23 Heparin - SQ 5,000 unit TID [facility] Administration Levothyroxine Sodium 75 mcg 05/13/18 07:00 05/15/18 06:23 Synthroid - PO 75 mcg DAILY@0700 [facility] Administration Lisinopril 5 mg 05/12/18 10:00 05/14/18 09:30 Prinivil PO 5 mg DAILY [facility] Administration Prednisolone Acetate 1 drop 05/12/18 14:00 05/14/18 21:15 Pred Forte 1% - OU 1 drop QID [facility] Administration Ranitidine HCl 150 mg 05/12/18 10:00 05/14/18 09:30 Zantac - PO 150 mg DAILY [facility] Administration Senna 2 tab 05/13/18 19:13 05/14/18 21:14 Senna - PO 2 tab HS PRN Administration CONSTIPATION ASSESSMENT AND PLAN 78 F with (1) acute left greater trochanteric bursitis, (2) chronic left femoral neck fracture, and (3) left hip post-traumatic arthritis. - Pain control: minimize narcotic use - DVT prophylaxis - Appreciate medical management - Awaiting rehab placement - Weight-bearing as tolerated left lower extremity - Physical therapy - No further orthopedic intervention. Patient can follow up in the office 1 week after discharge. Call [phone] to make an appointment. Dallas Desouza, DO Orthopedic Surgery [phone]
[2018-05-15] MEDS ORDERED: PT OWN MED DRAWER 7, Y5N ONE ×2 (09:46→14:15)
[2018-05-15] MEDS: prednisoLONE ACETATE 1% OPHTH SUSP 5 ML BOTTLE OU SCH ×3 (09:58→17:30)
[2018-05-15] MEDS: LISINOPRIL 5 MG TABLET (FP) PO SCH (10:00)
[2018-05-15] MEDS: ATORVASTATIN CA 20 MG TABLET (FP) PO SCH (10:00)
[2018-05-15] MEDS: FUROSEMIDE 20 MG TABLET (FP) PO SCH (10:00)
[2018-05-15] MEDS: CALCIUM 500MG/VIT-D 200 UNITS COMBO TABLET (FP) PO SCH (10:00)
[2018-05-15] MEDS: DOCUSATE SODIUM 100 MG CAPSULE (FP) PO SCH (10:00)
[2018-05-15] MEDS: RANITIDINE HCL 150 MG TABLET (FP) PO SCH (10:00)
[2018-05-15] MEDS: CLOPIDOGREL BISULFATE 75 MG TABLET (FP) PO SCH (10:00)
[2018-05-15 10:44] VITALS: BP 112/64; PULSE 79; TEMP 97.5
--- NOTE | 2018-05-15 17:06 | PN ---
Teaching Attending Note Name of Resident: Tank Caceres ATTENDING PHYSICIAN STATEMENT I saw and evaluated the patient. I reviewed the resident's note and discussed the case with the resident. I agree with the resident's findings and plan as documented. SUBJECTIVE: No fever or chills. L hip pain has improved OBJECTIVE: NAD. Cv: RRR, no MRG Lungs: CTAB Ext: no edema, no erythema. TTP over L posterior hip ASSESSMENT AND PLAN: 78 y/o lady with h/o glaucoma CAD, , HTn and Hypothyroidism, who presented with L hip pain. 1-Old Fx of L fem neck with L trochanteric bursitis: improved - s/p steroid injection - tylenol for pain - PT: WBAT . ambulation improved 2- h/o CAD: cont plavix . cont lisinopril, and statin. 3- HTN: cont lisinopril and lasix ambulated very well with PT, rehab is no longer needed after steorid injection. dc home with VNS for PT
--- NOTE | 2018-05-15 18:30 | DS ---
Physical Exam: SUBJECTIVE: Patient seen and examined. No acute events overnight. OBJECTIVE: Vital Signs Period Temp Pulse Resp BP Sys/Vann Pulse Ox Last 24 Hr 97.5 F-98.9 F 66-79 20-20 112-128/62-66 PHYSICAL EXAM GENERAL: The patient is awake, alert, and fully oriented, in no acute distress. EYES: Sclera anicteric, conjunctiva clear. ENT: Moist mucous membranes. LUNGS: Breath sounds equal, clear to auscultation bilaterally, no wheezes, no crackles, no accessory muscle use. HEART: Regular rate and rhythm, S1, S2 without murmur ABDOMEN: Soft, nontender, nondistended, normoactive bowel sounds, no guarding, no rebound EXTREMITIES: 2+ dorsal pedal pulses, normal ROM, moves all limbs spontaneously, warm, well-perfused, no edema. NEUROLOGICAL: Normal speech, gait not observed. PSYCH: Normal mood, normal affect. SKIN: Warm, dry, normal turgor, no rashes or lesions noted. LABS HOSPITAL COURSE: Date of Admission:05/11/18 Date of Discharge: 05/15/18 Pt. admitted for left hip pain 2/2 suspected fracture. X-rays negative for acute fracture. MRI positive for bursitis of the left femoral trochanter and old fracture and deformity of left femoral head. Pt. given Steroid injection to good effect and relief of symptoms. Pt.s chronic medical conditions managed with home doses of medications. Pt. discharged to home with VNS for rehab. Pt. advised for follow up as noted below. Hospital course discussed and agreed upon with Pt. and medical staff. Minutes to complete discharge: 34 Discharge Summary Reason For Visit: FRACTURE OF NECK OF FEMUR Current Active Problems Trochanteric bursitis (Acute) Femoral neck fracture (Chronic) HTN (hypertension) (Chronic) Condition: Improved - Instructions Diet, Activity, Other Instructions: You came in for left hip pain You were evaluated and found not to have an old fracture in your hip ( femoral neck ) but some inflammation of the area. We gave you a steroid injection to the area. Please continue taking your home medications as prescribed. Please use Tylenol over the counter as needed for pain . do not exceed more than 4 grams of tylenol a day Please follow up with your Primary Care Provider with in 1 week Please follow up with your Orthopedist, Dr. Feng in 1 week. Please call [phone] to make your appointment. You will be discharged home with visiting nurse. Please return to the ED if you are having increased pain, numbness in your legs or fever. Referrals: Kevon Feng DO [Staff Physician] - ON STAFF,NOT [Primary Care Provider] - 1 Week Disposition: HOME - Home Medications Comprehensive Discharge Medication List: Ambulatory Orders Atorvastatin Ca [Lipitor] 20 mg PO DAILY 03/18/18 Clopidogrel Bisulfate [Plavix] 75 mg PO DAILY 03/18/18 Furosemide [Lasix] 20 mg PO DAILY 03/18/18 Lisinopril 5 mg PO DAILY 03/18/18 Ciprofloxacin 0.3% Eye Drops [Ciloxan 0.3% Eye Drops --] 2 drop OU Q4HWA 7 Days #2 bottle 05/05/18 Ranitidine [Zantac -] 150 mg PO DAILY 7 Days #7 tablet 05/05/18 Albuterol Sulfate Inhaler - [Ventolin HFA Inhaler -] 1 puff PRN 05/12/18 Calcium Carbonate/Vitamin D3 [Calcium 500-Vit D3 200 Tablet] 1 each PO BID 05/12 Levothyroxine [Synthroid -] 75 mcg PO DAILY 05/12/18 Prednisolone 1% Ophthalmic [Pred Forte 1% -] 1 drop OU QID 05/12/18 Alendronate Sodium [Binosto] 70 mg PO WEEKLY #1 tablet.eff 05/15/18 This patient is new to me today: No Emergency Visit: Yes ED Registration Date: 05/11/18 Care time: The patient presented to the Emergency Department on the above date and was hospitalized for further evaluation of their emergent condition. Critical Care patient: No - Discharge Referral Referred to [facility] Med P.C.: No
== END 2018-05-15 20:49 | disposition home or self-care (01) | DRG 558 ==
LOC: JER 18:33 → JERBED 22:43 → J6S 05-12 02:33
PROVIDERS: ADMIT Internal Medicine; ATTEND Internal Medicine
PROC: 3E0U33Z Introduction of Anti-inflammatory into Joints, Percutaneous Approach (ICD-10-PCS; principal; 2018-05-14)
PROC: 3E0U3BZ Introduction of Anesthetic Agent into Joints, Percutaneous Approach (ICD-10-PCS; 2018-05-14)
DX: M70.62 Trochanteric bursitis, left hip (principal); M84.452A Pathological fracture, left femur, initial encounter for fracture; I25.10 Atherosclerotic heart disease of native coronary artery without angina pectoris; E03.9 Hypothyroidism, unspecified; H40.9 Unspecified glaucoma; I10 Essential (primary) hypertension; H10.9 Unspecified conjunctivitis
CPT/HCPCS: 36415; 71045-TC-FY; 72100-TC-FY; 72195-TC; 73523-TC-FY; 73552-TC-LT-FY; 80053; 81003; 83735; 84100; 85025; 85027; 85610; 85730; 86850; 86900; 86901; 87086; 93005; 93010; 97116-GP; 97161-GP; 99284-25; J1644

== ENCOUNTER 2018-07-29 10:35 | Emergency (ER) | payer OTHER ==
[2018-07-29 10:42] VITALS: BMI 29.2
[2018-07-29] MEDS ORDERED: methylPREDNISolone NA SUCC 125 MG/2 ML VIAL IVPB ONE (11:02)
[2018-07-29] MEDS ORDERED: FAMOTIDINE 20 MG/50 ML IVPB 20 MG in PREMIX 50 IVPB ONE (11:03)
[2018-07-29] MEDS ORDERED: methylPREDNISolone NA SUCC 125 MG/2 ML VIAL ONE ×2 (11:09→11:10)
[2018-07-29] MEDS ORDERED: FAMOTIDINE 20 MG/50 ML IVPB 20 MG/50 ML MG IVPB ONE (11:10)
--- NOTE | 2018-07-29 11:46 | PDOC ---
History of Present Illness - General Chief Complaint: Eye Problem Stated Complaint: Allergic Reaction Time Seen by Provider: 07/29/18 10:59 History Source: Patient Exam Limitations: Language Barrier - History of Present Illness Initial Comments: 07/29/18 11:47 78-year-old Female with history of glaucoma and eye surgeries 2 was followed by an manager style in the [place] presents to ED with bilateral eye itching and redness swelling and now drainage from the left eye. Patient states symptoms began about 3 days ago and denies any change of vision but was unable to see out of the left eye prior to onset secondary to her glaucoma. She denies headache, retro-orbital pressure, sinus pressure, or nasal congestion. Timing/Duration: other (3 days) Severity: mild Associated Symptoms: denies: fever/chills Past History - Travel Traveled outside of the country in the last 30 days: No Close contact w/someone who was outside of country & ill: No - Past Medical History Allergies/Adverse Reactions: Allergies Allergy/AdvReac Type Severity Reaction Status Date / Time neomycin Allergy Verified 07/29/18 10:39 Penicillins Allergy Verified 07/29/18 10:39 Home Medications: Ambulatory Orders Atorvastatin Ca [Lipitor] 20 mg PO DAILY 03/18/18 Clopidogrel Bisulfate [Plavix] 75 mg PO DAILY 03/18/18 Furosemide [Lasix] 20 mg PO DAILY 03/18/18 Lisinopril 5 mg PO DAILY 03/18/18 Ciprofloxacin 0.3% Eye Drops [Ciloxan 0.3% Eye Drops --] 2 drop OU Q4HWA 7 Days #2 bottle 05/05/18 Ranitidine [Zantac -] 150 mg PO DAILY 7 Days #7 tablet 05/05/18 Albuterol Sulfate Inhaler - [Ventolin HFA Inhaler -] 1 puff PRN 05/12/18 Calcium Carbonate/Vitamin D3 [Calcium 500-Vit D3 200 Tablet] 1 each PO BID 05/12 Levothyroxine [Synthroid -] 75 mcg PO DAILY 05/12/18 Prednisolone 1% Ophthalmic [Pred Forte 1% -] 1 drop OU QID 05/12/18 Alendronate Sodium [Binosto] 70 mg PO WEEKLY #1 tablet.eff 05/15/18 Cardiac Disorders: Yes COPD: No HTN: Yes Thyroid Disease: Yes - Immunization History Immunization Up to Date: Yes - Suicide/Smoking/Psychosocial Hx Smoking History: Never smoked Hx Alcohol Use: No Drug/Substance Use Hx: No Substance Use Type: None Patient Lives Alone: No Lives with/in: (son) Review of Systems - Review of Systems Able to Perform ROS?: Yes Is the patient limited [place] proficient: No Constitutional: No: Symptoms Reported HEENTM: Yes: Eye Pain, Blurred Vision, Tearing Respiratory: No: Symptoms reported Musculoskeletal: No: Symptoms Reported Integumentary: Yes: Erythema, Pruritus, Rash Endocrine: No: Symptoms Reported *Physical Exam - Vital Signs Last Vital Signs Temp Pulse Resp BP Pulse Ox 98.4 F 81 16 130/67 99 07/29/18 10:39 07/29/18 10:39 07/29/18 10:39 07/29/18 10:39 07/29/18 10:39 - Physical Exam General Appearance: Yes: Nourished, Appropriately Dressed. No: Apparent Distress HEENT: positive: Other (Left eye- erythematous edematous upper and lower eyelid with redness to the lower aspect of sclera. Noted yellowish mucus near lacrimal duct). negative: Scleral Icterus (R), Scleral Icterus (L) Neck: positive: Supple. negative: Lymphadenopathy (R), Lymphadenopathy (L) Respiratory/Chest: positive: Lungs Clear, Normal Breath Sounds. negative: Respiratory Distress, Accessory Muscle Use Cardiovascular: positive: Regular Rhythm, Regular Rate. negative: Murmur Integumentary: positive: Erythema, Swelling Neurologic: positive: Motor Strength 5/5 (ambulatory) Moderate Sedation - Procedure Monitoring Vital Signs: Procedure Monitoring Vital Signs Temperature 98.4 F 07/29/18 10:39 Pulse Rate 81 07/29/18 10:39 Respiratory Rate 16 07/29/18 10:39 Blood Pressure 130/67 07/29/18 10:39 O2 Sat by Pulse Oximetry (%) 99 07/29/18 10:39 ED Treatment Course - LABORATORY CBC & Chemistry Diagram: 07/29/18 12:00 07/29/18 12:00 - RADIOLOGY Radiology Studies Ordered: Category Date Time Status SOFT TISSUE NECK AND HEAD US [US] Stat Ultrasound 07/29/18 11:02 Ordered Medical Decision Making - Medical Decision Making 07/29/18 11:50 Complaint: Bilateral eye redness and itching and swelling now with drainage since this morning. History of glaucoma and eye surgery 2. Patient has no recent change in facial soaps. Patient with recurrent infection 2 over the last 8 months Exam: Erythematous edematous bilateral eyes with mucousy yellowish green discharge exuding from left eye Plan: CBC, call, IV access, IV Benadryl, IV steroids and IV H2 antagonist- Pepcid, soft tissue CT with IV contrast of the face to rule out underlying etiology such as abscess or mass. Willconsider IV antibiotics versus pill form once labs are reviewed. 07/29/18 14:44 Laboratory Tests 07/29/18 07/29/18 12:00 12:00 WBC 7.7 Hgb 13.1 Hct 38.4 MPV 6.9 L Absolute Neuts (auto) 4.2 Neutrophils % 54.4 Lymphocytes % 34.4 Monocytes % 5.7 Eosinophils % 4.7 H D Sodium 144 Potassium 4.2 Chloride 110 H Carbon Dioxide 29 Anion Gap 4 L BUN 14 Creatinine 0.5 L Creat Clearance w eGFR > 60 Random Glucose 109 H Calcium 8.9 Total Bilirubin 0.4 AST 30 ALT 37 Alkaline Phosphatase 77 Total Protein 6.9 Albumin 3.4 Will contact patient at home if results are positive. Patient otherwise will be prescribed Cipro eyedrops and prednisone to start tomorrow along with recommendations to take Benadryl *DC/Admit/Observation/Transfer Diagnosis at time of Disposition: Cellulitis - Discharge Dispostion Disposition: HOME Condition at time of disposition: Good - Referrals Referrals: ON STAFF,NOT [Primary Care Provider] - - Patient Instructions Printed Discharge Instructions: DI for Orbital Cellulitis Additional Instructions: Start steroids tomorrow as you were given your first dose of steroids here in the ER today. Please start antibiotics today. Please return to ED if your symptoms worsen. I will call you with the results of your CAT scan if there are any abnormal findings. - Post Discharge Activity
[2018-07-29 12:11] LABS: BASO % 0.8 % (0-2.0); EOS % 4.7 % (0-4.5); HEMATOCRIT 38.4 % (32.4-45.2); HEMOGLOBIN 13.1 GM/dL (10.7-15.3); LYMPH % 34.4 % (8-40); MCH 31.6 pg (25.7-33.7); MCHC 34.1 g/dl (32.0-36.0); MEAN CELL VOLUME 92.6 fl (80-96); MEAN PLT VOLUME 6.9 fl (7.5-11.1); MONO % 5.7 % (3.8-10.2); NEUT % 54.4 % (42.8-82.8); PLATELET COUNT 323 K/MM3 (134-434); RBC 4.14 M/mm3 (3.60-5.2); RDW 13.7 % (11.6-15.6); WHITE BLOOD COUNT 7.7 K/mm3 (4.0-10.0)
[2018-07-29 12:50] LABS: ALBUMIN 3.4 g/dl (3.4-5.0); ALK PHOS 77 U/L (45-117); ANION GAP 4 MMOL/L (8-16); BILIRUBIN,TOTAL 0.4 mg/dL (0.2-1); BLOOD UREA NITROGEN 14 mg/dL (7-18); CALCIUM 8.9 mg/dL (8.5-10.1); CHLORIDE 110 mmol/L (98-107); CO2 29 mmol/L (21-32); CREATININE 0.5 mg/dL (0.55-1.3); GLUCOSE,RANDOM 109 mg/dL (74-106); POTASSIUM 4.2 mmol/L (3.5-5.1); SGOT/AST 30 U/L (15-37); SGPT/ALT 37 U/L (13-61); SODIUM 144 mmol/L (136-145); TOT PROT 6.9 g/dl (6.4-8.2)
[2018-07-29 15:07] VITALS: BP 130/56; PULSE 98; TEMP 98.2
== END 2018-07-29 15:23 | disposition home or self-care (01) ==
LOC: JER 10:35 → JERFT 10:35 → JER 15:23
PROC: 3E033GC Introduction of Other Therapeutic Substance into Peripheral Vein, Percutaneous Approach (ICD-10-PCS; principal; 2018-07-29)
PROC: 3E033GC Introduction of Other Therapeutic Substance into Peripheral Vein, Percutaneous Approach (ICD-10-PCS; 2018-07-29)
PROC: 3E0333Z Introduction of Anti-inflammatory into Peripheral Vein, Percutaneous Approach (ICD-10-PCS; 2018-07-29)
DX: H05.012 Cellulitis of left orbit (principal); I10 Essential (primary) hypertension; E07.89 Other specified disorders of thyroid; Z86.69 Personal history of other diseases of the nervous system and sense organs
CPT/HCPCS: 36415; 70481-TC; 80053; 85025; 87070; 87205; 96365; 96375; 99281-25

== ENCOUNTER 2024-05-19 15:32 | Observation (INO) | payer OTHER ==
[2024-05-19 15:45] VITALS: RESP 18
[2024-05-19 17:17] LABS: BASO % 0.6 % (0-2.0); EOS % 0.4 % (0-4.5); HEMATOCRIT 39.4 % (32.4-45.2); LYMPH % 19.3 % (8-40); MCH 31.1 pg (25.7-33.7); MCHC 33.1 g/dl (32.0-36.0); MEAN CELL VOLUME 93.9 fl (80-96); MEAN PLT VOLUME 6.4 fl (7.5-11.1); MONO % 3.3 % (3.8-10.2); NEUT % 76.4 % (42.8-82.8); PLATELET COUNT 357 10^3/uL (134-434); RDW 14.3 % (11.6-15.6); WHITE BLOOD COUNT 6.8 K/mm3 (4.0-10.0)
[2024-05-19 17:25] LABS: INR 1.23 (0.83-1.09); PROTHROMBIN TIME (PATIENT) 13.8 SEC (9.7-13.0)
[2024-05-19 17:36] LABS: POTASSIUM 5.2 mmol/L (3.5-5.1)
[2024-05-19 17:37] LABS: CALCIUM 9.9 mg/dL (8.5-10.1)
[2024-05-19 17:38] LABS: ALBUMIN 3.5 g/dl (3.4-5.0); BLOOD UREA NITROGEN 22.6 mg/dL (7-18)
[2024-05-19 17:41] LABS: CREATININE 0.8 mg/dL (0.55-1.3)
[2024-05-19 17:43] LABS: BILIRUBIN,TOTAL 0.3 mg/dL (0.2-1); TOT PROT 7.2 g/dl (6.4-8.2)
[2024-05-19 17:47] LABS: N-TERMINAL BNP 57.1 pg/ml (5-450)
[2024-05-19] MEDS ORDERED: ALBUTEROL SO4 2.5/IPRATROPIUM 0.5 INH SOL 3 ML VIAL.NEB. NEB ONE (19:57)
[2024-05-19] MEDS: ALBUTEROL SO4 2.5/IPRATROPIUM 0.5 INH SOL 3 ML VIAL.NEB. NEB ONE (20:00)
[2024-05-19] MEDS ORDERED: predniSONE 20 MG TABLET (UD) ONE (20:03)
[2024-05-19] MEDS: predniSONE 20 MG TABLET (UD) PO ONE (20:13)
[2024-05-20] MEDS ORDERED: SULFAMETHOXAZOLE/TRIMETHOPRIM 800MG/160MG D.S. TABLET ONE (00:08)
[2024-05-20] MEDS: SULFAMETHOXAZOLE/TRIMETHOPRIM 800MG/160MG D.S. TABLET PO ONE (00:20)
[2024-05-20] MEDS ORDERED: ACETAMINOPHEN 325 MG TABLET (FP) PO PRN (09:34)
[2024-05-20 09:42] LABS: HEMATOCRIT 38.4 % (32.4-45.2); HEMOGLOBIN 12.4 GM/dL (10.7-15.3); MCH 30.7 pg (25.7-33.7); MCHC 32.4 g/dl (32.0-36.0); MEAN CELL VOLUME 94.8 fl (80-96); MEAN PLT VOLUME 6.8 fl (7.5-11.1); PLATELET COUNT 379 10^3/uL (134-434); RBC 4.05 M/mm3 (3.60-5.2); RDW 13.9 % (11.6-15.6); WHITE BLOOD COUNT 9.6 K/mm3 (4.0-10.0)
[2024-05-20 09:59] LABS: BLOOD UREA NITROGEN 20.7 mg/dL (7-18); CALCIUM 9.3 mg/dL (8.5-10.1)
[2024-05-20 10:00] LABS: ALBUMIN 3.2 g/dl (3.4-5.0)
[2024-05-20] MEDS ORDERED: LISINOPRIL 5 MG TABLET PO SCH (10:00)
[2024-05-20] MEDS ORDERED: APIXABAN 5 MG TABLET PO SCH (10:00)
[2024-05-20 10:05] LABS: BILIRUBIN,TOTAL 0.3 mg/dL (0.2-1); TOT PROT 6.7 g/dl (6.4-8.2)
[2024-05-20 10:08] LABS: CREATININE 0.9 mg/dL (0.55-1.3)
[2024-05-20] MEDS: ALBUTEROL SO4 2.5/IPRATROPIUM 0.5 INH SOL 3 ML VIAL.NEB. NEB PRN (11:36)
[2024-05-20] MEDS: LEVOTHYROXINE NA 75 MCG TABLET (FP) PO SCH (11:44)
[2024-05-20] MEDS: FUROSEMIDE 20 MG TABLET (FP) PO SCH (11:44)
[2024-05-20] MEDS: CLOPIDOGREL BISULFATE 75 MG TABLET (FP) PO SCH (11:44)
[2024-05-20] MEDS: HEPARIN NA (PORCINE) 5,000 UNITS/ML 1ML VIAL SQ SCH (11:50)
[2024-05-20] MEDS: APIXABAN 5 MG TABLET PO SCH (21:03)
[2024-05-20] MEDS: ATORVASTATIN CA 20 MG TABLET (FP) PO SCH (21:03)
[2024-05-21] MEDS: ALBUTEROL SO4 2.5/IPRATROPIUM 0.5 INH SOL 3 ML VIAL.NEB. NEB PRN (07:25)
[2024-05-21 13:30] VITALS: BMI 32.5
[2024-05-21 14:31] VITALS: BP 116/56; PULSE 73; TEMP 98.8
== END 2024-05-21 16:34 | disposition home or self-care (01) ==
LOC: JER 15:32 → JERBED 21:15 → J5S 05-20 00:46
PROVIDERS: ADMIT Internal Medicine; ATTEND Nurse Practitioner Family
PROC: 3E0F7GC Introduction of Other Therapeutic Substance into Respiratory Tract, Via Natural or Artificial Opening (ICD-10-PCS; principal; 2024-05-19)
PROC: 3E023GC Introduction of Other Therapeutic Substance into Muscle, Percutaneous Approach (ICD-10-PCS; 2024-05-19)
DX: D68.59 Other primary thrombophilia (principal); M79.89 Other specified soft tissue disorders; R06.02 Shortness of breath; Z29.89 Encounter for other specified prophylactic measures; Z88.0 Allergy status to penicillin; Z88.8 Allergy status to other drugs, medicaments and biological substances; H40.9 Unspecified glaucoma
CPT/HCPCS: 0241U-QW; 36415; 71045-TC-FY; 71275-TC; 73590-TC-LT-FY; 80053; 80061; 83036; 83880; 84443; 84484; 85025; 85027; 85379; 85610; 93005; 93010; 93971-TC; 94640; 96372; 97116-GP; 97161-GP; 99285-25; G0378; J1644; Q9967

== ENCOUNTER 2025-01-09 22:36 | Emergency (ER) | payer OTHER ==
[2025-01-09 22:45] VITALS: TEMP 98.3; BMI 30.4
[2025-01-09] MEDS ORDERED: ACETAMINOPHEN INJECTION 100 ML ONE (23:12)
[2025-01-09] MEDS: ACETAMINOPHEN 1000 MG/100 ML BAG IVPB ONE (23:28)
[2025-01-09] MEDS: SODIUM CHLORIDE 0.9% 500 ML INFUS.BAG IV ONE (23:29)
[2025-01-10 00:23] LABS: ABSOLUTE IMMATURE GRANULOCYTES 0.04 x10^3/uL (0.0-0.031); BASOPHILS # 0.04 x10^3/uL (0.01-0.08); EOSINOPHIL % 0.8 % (0.7-5.8); EOSINOPHILS # 0.06 x10^3/uL (0.04-0.36); MCHC 31.1 g/dl (32.2-35.5); MEAN CELL VOLUME 96.2 fl (79.4-94.8); MEAN PLT VOLUME 8.6 fl (9.4-12.3); MONOCYTE # 0.50 x10^3/uL (0.24-0.86); MONOCYTE % 6.8 % (4.7-12.5); RDW 13.3 % (12.5-17.0)
[2025-01-10 00:33] LABS: EPI CELLS >36 /uL (0-25.1); HYALINE CASTS 4 /uL (0-3.1); URINE APPEARANCE CLEAR; URINE BACTERIA 4 /uL (0-1359); URINE BILIRUBIN NEGATIVE (NEGATIVE); URINE COLOR ORANGE; URINE GLUCOSE (UA) NEGATIVE (NEGATIVE); URINE KETONE NEGATIVE (NEGATIVE); URINE LEUK ESTERASE 1+ (NEGATIVE); URINE NITRITE NEGATIVE (NEGATIVE); URINE PROTEIN 2+ (NEGATIVE); URINE UROBILINOGEN 0.2 mg/dL (0.2-1.0); URINE WBC 181 /uL (0-25.8)
[2025-01-10 00:46] LABS: CO2 29.0 mmol/L (21-32); GLUCOSE,RANDOM 133.0 mg/dL (74-106)
[2025-01-10 00:49] LABS: CREATININE 0.9 mg/dL (0.55-1.3); SGOT/AST 24.0 U/L (15-37); SGPT/ALT 35.0 U/L (13-61)
[2025-01-10 00:51] LABS: TOT PROT 7.1 g/dl (6.4-8.2)
[2025-01-10 00:52] LABS: ALK PHOS 72.0 U/L (45-117)
[2025-01-10 01:39] LABS: HCV DIAGNOSTIC IN-HOUSE W/RFLX NON-REACTIVE (NONREACTIVE)
[2025-01-10 01:40] LABS: HIV INTERPRETATION NEGATIVE (NEGATIVE)
[2025-01-10 02:38] VITALS: BP 136/59; PULSE 65; RESP 18
[2025-01-10 03:55] LABS: URINE RBC 35055.9 /uL (0-23.9)
== END 2025-01-10 02:38 | disposition home or self-care (01) ==
LOC: JER 22:36
PROC: 3E033NZ Introduction of Analgesics, Hypnotics, Sedatives into Peripheral Vein, Percutaneous Approach (ICD-10-PCS; 2025-01-09)
PROC: 3E03329 Introduction of Other Anti-infective into Peripheral Vein, Percutaneous Approach (ICD-10-PCS; principal; 2025-01-10)
DX: R31.0 Gross hematuria (principal); N32.89 Other specified disorders of bladder; R10.9 Unspecified abdominal pain
CPT/HCPCS: 36415; 74177-TC; 80053; 81003; 83690; 85025; 86803; 87086; 87389; 96365; 96375; 99285-25; Q9967

== ENCOUNTER 2025-01-29 20:05 | Emergency (ER) | payer OTHER ==
[2025-01-29 20:13] VITALS: TEMP 98.5; BMI 29.2
[2025-01-29 21:29] LABS: ABSOLUTE IMMATURE GRANULOCYTES 0.02 x10^3/uL (0.0-0.031); BASOPHILS # 0.07 x10^3/uL (0.01-0.08); EOSINOPHIL % 3.0 % (0.7-5.8); EOSINOPHILS # 0.21 x10^3/uL (0.04-0.36); MCHC 32.1 g/dl (32.2-35.5); MEAN CELL VOLUME 94.7 fl (79.4-94.8); MEAN PLT VOLUME 8.6 fl (9.4-12.3); MONOCYTE # 0.43 x10^3/uL (0.24-0.86); MONOCYTE % 6.1 % (4.7-12.5); RDW 13.3 % (12.5-17.0)
[2025-01-29 21:32] LABS: EPI CELLS 12 /uL (0-25.1); HYALINE CASTS 1 /uL (0-3.1); URINE APPEARANCE CLOUDY; URINE BACTERIA 3 /uL (0-1359); URINE BILIRUBIN NEGATIVE (NEGATIVE); URINE COLOR RED; URINE GLUCOSE (UA) NEGATIVE (NEGATIVE); URINE KETONE NEGATIVE (NEGATIVE); URINE LEUK ESTERASE TRACE (NEGATIVE); URINE NITRITE NEGATIVE (NEGATIVE); URINE PROTEIN 2+ (NEGATIVE); URINE RBC 778 /uL (0-23.9); URINE UROBILINOGEN 0.2 mg/dL (0.2-1.0); URINE WBC 41 /uL (0-25.8)
[2025-01-29 21:55] LABS: CO2 31.0 mmol/L (21-32); GLUCOSE,RANDOM 135.0 mg/dL (74-106)
[2025-01-29 21:58] LABS: CREATININE 0.9 mg/dL (0.55-1.3); SGOT/AST 35.0 U/L (15-37); SGPT/ALT 35.0 U/L (13-61)
[2025-01-29 22:00] LABS: TOT PROT 7.2 g/dl (6.4-8.2)
[2025-01-29 22:01] LABS: ALK PHOS 58.0 U/L (45-117)
[2025-01-29 22:07] VITALS: BP 134/62; PULSE 74; RESP 17
[2025-01-29 22:54] LABS: HIV INTERPRETATION NEGATIVE (NEGATIVE)
[2025-01-29 22:56] LABS: HCV DIAGNOSTIC IN-HOUSE W/RFLX NON-REACTIVE (NONREACTIVE)
== END 2025-01-29 22:06 | disposition home or self-care (01) ==
LOC: JER 20:05
DX: D49.4 Neoplasm of unspecified behavior of bladder (principal); R31.9 Hematuria, unspecified; R60.0 Localized edema; H26.9 Unspecified cataract; R94.31 Abnormal electrocardiogram [ECG] [EKG]
CPT/HCPCS: 80053; 81003; 85025; 86803; 86850; 86900; 86901; 87086; 87389; 93005; 93010; 99284-25